=== PATIENT | female | born 1950 | race Caucasian/White ===

== ENCOUNTER 2019-11-23 12:57 | Inpatient (IN) | payer MEDICARE ==
[2019-11-23] MEDS ORDERED: ACETAMINOPHEN TAB 500 MG TAB PO STA (13:50)
--- NOTE | 2019-11-23 13:51 | ED ---
General Adult HPI - General Chief complaint: Upper Respiratory Infection Stated complaint: Covid + Time Seen by Provider: 11/23/19 13:07 Source: patient Mode of arrival: ambulatory Limitations: no limitations - History of Present Illness Initial comments: Dictation was produced using [employer] dictation software. please excuse any grammatical, word or spelling errors. This patient was cared for during a federal and state declared state of emergenc y secondary to Covid 19 Chief Complaint: 69-year-old female with no significant past medical history presents today with 1 week of cough and dyspnea. History of Present Illness: Is a 69-year-old female she has been feeling ill for the last 1-2 weeks. Patient had a chronic virus test that this resulted today and was found to be positive. Patient denies any chest pain. She states she is here in emergency department not because her tests are positive but because she feels like she's been sick and not getting anywhere. Patient denies any palpitations. She has been having low-grade fevers. She does complain of bilateral ear pain. Patient has a history of asthma or COPD patient resides any history of tobacco use. The ROS documented in this emergency department record has been reviewed and confirmed by me. Those systems with pertinent positive or negative responses have been documented in the HPI. All other systems are other negative and/or noncontributory. PHYSICAL EXAM: General Impression: Alert and oriented x3, not in acute distress, coughing HEENT: Normocephalic atraumatic, extra-ocular movements intact, pupils equal and reactive to light bilaterally, mucous membranes moist. Cardiovascular: Heart regular rate and rhythm Chest: Able to complete full sentences, no retractions, no tachypnea Abdomen: abdomen soft, non-tender, non-distended, no organomegaly Musculoskeletal: Pulses present and equal in all extremities, no peripheral edema Motor: no focal deficits noted Neurological: CN II-XII grossly intact, no focal motor or sensory deficits noted Skin: Intact with no visualized rashes Psych: Normal affect and mood ED course: 69 Year old female with known Covid positive test presents with fatigue, nonproductive cough. As upon arrival shows temperature 102.5, heart rate 135. Patient is not hypoxic. Laboratory evaluation obtained leukocytosis 14.2. There is lymphocyte up any. Coag panel is unremarkable. Metabolic panel is within acceptable limits. Lactic dehydrogenase is 80 weight, C-reactive protein is 89.8. Chest x-ray shows bilateral pneumonia. Patient heart rate is improved after administration of Tylenol. Considering patient's EKG changes and concern of pulmonary embolus. Patient started on twice a day Lovenox after discussion with machine assembler supervisor Dr. Starks. Dr. Starks recommended that patient does not need immediate CT PE study to look for PE. Patient is atrophic precautions. Case discussed Dr. Galeas who is willing to accept patient's care. EKG interpretation: Ventricular rate 119, sinus tachycardia, ND interval 120, Q RS 84, QTC 437. No ND prolongation, no QTC prolongation. There does appear to be an S1 every 3 T3 pattern concerning for pulmonary embolus. - Related Data Allergies Allergy/AdvReac Type Severity Reaction Status Date / Time No Known Allergies Allergy Verified 11/23/19 15:18 Review of Systems ROS Statement: Those systems with pertinent positive or pertinent negative responses have been documented in the HPI. ROS Other: All systems not noted in ROS Statement are negative. Past Medical History Past Medical History: No Reported History History of Any Multi-Drug Resistant Organisms: None Reported Past Surgical History: Section Past Psychological History: No Psychological Hx Reported Smoking Status: Never smoker Past Alcohol Use History: None Reported Past Drug Use History: None Reported General Exam Limitations: no limitations Course Vital Signs 11/23/19 11/23/19 11/23/19 13:00 15:11 15:37 Temperature 102.5 F H 101.6 F H Pulse Rate 135 H 99 77 Respiratory 23 20 16 Rate Blood Pressure 124/56 112/71 119/72 O2 Sat by Pulse 95 95 100 Oximetry Medical Decision Making - Lab Data Result diagrams: 11/23/19 14:01 11/23/19 14:01 Lab Results 11/23/19 11/23/19 11/23/19 Range/Units 14:01 14:01 14:01 WBC 14.2 H (3.8-10.6) k/uL RBC 4.84 (3.80-5.40) m/uL Hgb 14.5 (11.4-16.0) gm/dL Hct 45.1 (34.0-46.0) % MCV 93.3 (80.0-100.0) fL MCH 30.0 (25.0-35.0) pg MCHC 32.1 (31.0-37.0) g/dL RDW 12.8 (11.5-15.5) % Plt Count 202 (150-450) k/uL Neutrophils % 90 % Lymphocytes % 4 % Monocytes % 3 % Eosinophils % 1 % Basophils % 1 % Neutrophils # 12.7 H (1.3-7.7) k/uL Lymphocytes # 0.6 L (1.0-4.8) k/uL Monocytes # 0.5 (0-1.0) k/uL Eosinophils # 0.1 (0-0.7) k/uL Basophils # 0.1 (0-0.2) k/uL PT 10.2 (9.0-12.0) sec INR 1.0 (<1.2) APTT 23.2 (22.0-30.0) sec Sodium 139 (137-145) mmol/L Potassium 3.5 (3.5-5.1) mmol/L Chloride 107 (98-107) mmol/L Carbon Dioxide 25 (22-30) mmol/L Anion Gap 7 mmol/L BUN 20 H (7-17) mg/dL Creatinine 0.65 (0.52-1.04) mg/dL Est GFR (CKD-EPI)AfAm >90 (>60 ml/min/1.73 sqM) Est GFR (CKD-EPI)NonAf >90 (>60 ml/min/1.73 sqM) Glucose 130 H (74-99) mg/dL Plasma Lactic Acid Herrera (0.7-2.0) mmol/L Calcium 8.8 (8.4-10.2) mg/dL Magnesium 2.3 (1.6-2.3) mg/dL Total Bilirubin 0.8 (0.2-1.3) mg/dL AST 44 H (14-36) U/L ALT 46 H (4-34) U/L Alkaline Phosphatase 68 (38-126) U/L Lactate Dehydrogenase 808 H (313-618) U/L C-Reactive Protein 89.8 H (<10.0) mg/L Total Protein 6.5 (6.3-8.2) g/dL Albumin 3.6 (3.5-5.0) g/dL 11/23/19 Range/Units 14:01 WBC (3.8-10.6) k/uL RBC (3.80-5.40) m/uL Hgb (11.4-16.0) gm/dL Hct (34.0-46.0) % MCV (80.0-100.0) fL MCH (25.0-35.0) pg MCHC (31.0-37.0) g/dL RDW (11.5-15.5) % Plt Count (150-450) k/uL Neutrophils % % Lymphocytes % % Monocytes % % Eosinophils % % Basophils % % Neutrophils # (1.3-7.7) k/uL Lymphocytes # (1.0-4.8) k/uL Monocytes # (0-1.0) k/uL Eosinophils # (0-0.7) k/uL Basophils # (0-0.2) k/uL PT (9.0-12.0) sec INR (<1.2) APTT (22.0-30.0) sec Sodium (137-145) mmol/L Potassium (3.5-5.1) mmol/L Chloride (98-107) mmol/L Carbon Dioxide (22-30) mmol/L Anion Gap mmol/L BUN (7-17) mg/dL Creatinine (0.52-1.04) mg/dL Est GFR (CKD-EPI)AfAm (>60 ml/min/1.73 sqM) Est GFR (CKD-EPI)NonAf (>60 ml/min/1.73 sqM) Glucose (74-99) mg/dL Plasma Lactic Acid Herrera 1.0 (0.7-2.0) mmol/L Calcium (8.4-10.2) mg/dL Magnesium (1.6-2.3) mg/dL Total Bilirubin (0.2-1.3) mg/dL AST (14-36) U/L ALT (4-34) U/L Alkaline Phosphatase (38-126) U/L Lactate Dehydrogenase (313-618) U/L C-Reactive Protein (<10.0) mg/L Total Protein (6.3-8.2) g/dL Albumin (3.5-5.0) g/dL Disposition Clinical Impression: COVID-19 Disposition: ADMITTED IP TO THIS [facility] Condition: Fair Referrals: None,Stated [REFERRING] - 1-2 days Decision Time: 15:45
[2019-11-23] MEDS ORDERED: HEPARIN SODIUM,PORCINE 5,000 UNIT/ML 1 ML VIAL IV PRN (14:30)
[2019-11-23] MEDS ORDERED: HEPARIN SODIUM,PORCINE 10,000 UNIT/ML 1 ML VIAL IV ONE (14:30)
[2019-11-23] MEDS ORDERED: HEPARIN SOD,PORK IN 0.45% NACL 25,000 UNIT in 0.45% NACL 1 250ML.BAG IV SCH (14:30)
[2019-11-23 14:35] LABS: Basophils # (A) 0.1 k/uL (0-0.2); Basophils % (A) 1 %; Eosinophils # (A) 0.1 k/uL (0-0.7); Eosinophils % (A) 1 %; HCT 45.1 % (34.0-46.0); HGB 14.5 gm/dL (11.4-16.0); Lymphocytes # (A) 0.6 k/uL (1.0-4.8); Lymphocytes % (A) 4 %; MCHC 32.1 g/dL (31.0-37.0); MCV 93.3 fL (80.0-100.0); Mean Platelet Volume 7.6; Monocytes # (A) 0.5 k/uL (0-1.0); Monocytes % (A) 3 %; Neutrophils # (A) 12.7 k/uL (1.3-7.7); Neutrophils % (A) 90 %; Platelet Count 202 k/uL (150-450); RBC 4.84 m/uL (3.80-5.40); RDW 12.8 % (11.5-15.5); WBC 14.2 k/uL (3.8-10.6)
[2019-11-23 14:46] LABS: Partial Thromboplastin Time 23.2 sec (22.0-30.0); Prothrombin Time 10.2 sec (9.0-12.0)
[2019-11-23 14:57] LABS: ALT 46 U/L (4-34); AST 44 U/L (14-36); African American GFR (CKD) >90 (>60 ml/min/1.73 sqM); Albumin 3.6 g/dL (3.5-5.0); Alkaline Phosphatase 68 U/L (38-126); Anion Gap 7 mmol/L; Blood Urea Nitrogen 20 mg/dL (7-17); C Reactive Protein 89.8 mg/L (<10.0); Calcium 8.8 mg/dL (8.4-10.2); Carbon Dioxide 25 mmol/L (22-30); Chloride 107 mmol/L (98-107); Glucose 130 mg/dL (74-99); LDH 808 U/L (313-618); Magnesium 2.3 mg/dL (1.6-2.3); Non-African American GFR(CKD) >90 (>60 ml/min/1.73 sqM); Potassium 3.5 mmol/L (3.5-5.1); Sodium 139 mmol/L (137-145); Total Bilirubin 0.8 mg/dL (0.2-1.3); Total Protein 6.5 g/dL (6.3-8.2)
--- NOTE | 2019-11-23 14:59 | XR ---
EXAMINATION TYPE: XR chest 1V portable DATE OF EXAM: 11/23/2019 COMPARISON: NONE HISTORY: Pneumonia. Chest pain TECHNIQUE: Single view FINDINGS: There is some patchy airspace infiltrate left lower lobe and right upper lobe. Heart size i s normal. There are no hilar masses. Thoracic aorta is atheromatous. There are chest leads. IMPRESSION: Mild patchy bilateral pneumonia and subsegmental atelectasis.
[2019-11-23] MEDS ORDERED: ENOXAPARIN 80 MG/0.8 ML SYRINGE SQ STA (15:27)
[2019-11-23] MEDS ORDERED: NALOXONE 0.4 MG/ML 1 ML VIAL IV PRN (15:39)
[2019-11-23] MEDS ORDERED: ONDANSETRON 4 MG/2 ML VIAL IVP PRN (15:39)
[2019-11-23] MEDS: SODIUM CHLORIDE 0.9% 1,000 ML IV SCH (15:53)
--- NOTE | 2019-11-23 16:21 | US ---
EXAMINATION TYPE: US venous doppler duplex LE BI DATE OF EXAM: 11/23/2019 4:10 PM COMPARISON: NONE CLINICAL HISTORY: rule out dvt. Covid protocol per RN. SIDE PERFORMED: Bilateral TECHNIQUE: The lower extremity deep venous system is examined utilizing real time linear array sonog zena with graded compression, doppler sonography and color-flow sonography. VESSELS IMAGED: External Iliac Vein (EIV) Common Femoral Vein Deep Femoral Vein Greater Saphenous Vein * Femoral Vein Popliteal Vein Small Saphenous Vein * Proximal Calf Veins (* superficial vessels) Rouleau flow noted throughout. All vessels are compressible. Right Leg: Negative for DVT Left Leg: Negative for DVT IMPRESSION: No sign of deep vein thrombosis in both legs.
[2019-11-23] MEDS ORDERED: ALBUTEROL HFA INHALER INHALATION PRN (21:34)
[2019-11-23] MEDS: LATANOPROST 0.005% OPHTH DROPS 2.5 ML BTL BOTH EYES SCH (21:59)
[2019-11-23] MEDS ORDERED: AZITHROMYCIN 500 MG in SODIUM CHLORIDE 0.9% 250 ML IVPB ONE (22:00)
[2019-11-23] MEDS ORDERED: CEFDINIR 300 MG CAP PO SCH (22:00)
[2019-11-23] MEDS ORDERED: MECLIZINE 25 MG TAB PO PRN (22:00)
[2019-11-23] MEDS ORDERED: ONDANSETRON ODT 8 MG TAB.RAPDIS PO PRN (22:00)
--- NOTE | 2019-11-23 22:53 | P.HPIM ---
History of Present Illness H&P Date: 11/23/19 Chief Complaint: Short of breath cough History of presenting complaint: This is a pleasant 69-year-old patient of Dr. Edwina Mcgill. Patient on 12 of November started getting this very symptoms. That included some shortness of breath cough fever tired started having some loose stools. Decreased appetite tired rundown. Also some headache. Symptoms progressively started to get worse. Patient denies any respiratory prior history. No smoking. Patient is employed. Patient came down positive for COVID 19. Dr. Schneider was consulted from the ER. Patient started on Lovenox and steroids. Patient does feel tired and rundown. Review of systems: GEN.: Tired decreased appetite EYES: None HEENT: Denies headache NECK: None RESPIRATORY: As above CARDIOVASCULAR: None GASTROINTESTINAL: None GENITOURINARY: None MUSCULOSKELETAL: [Muscle aches LYMPHATICS: None HEMATOLOGICAL: None PSYCHIATRY: None NEUROLOGICAL: None Past medical history: Unremarkable Social history: Does not smoke or drink alcohol. Employed. Lives alone. Physical examination: VITAL SIGNS: 102.5, 135, 23, 124 /56, 93% on room air-upon presentation GENERAL: BMI 36.4, laying in bed, tired. EYES: Pupils equal. Conjunctiva normal. HEENT: External appearance of nose and ears normal, oral cavity grossly normal. NECK: JVD not raised; masses not palpable. HEART: First and second heart sounds are normal; no edema. LUNGS: Respiratory rate increased, decreased breath sound some wheezing inte rmittently crackles. ABDOMEN: Soft, nontender, liver spleen not palpable, no masses palpable. PSYCH: Alert and oriented x3; mood and affect anxiousl. NEUROLOGICAL: Cranial nerves grossly intact; no facial asymmetry, power and sensation grossly intact. LYMPHATICS: No lymph nodes palpable in the axilla and neck INVESTIGATIONS, reviewed in the clinical context: White count 14.2 neutrophils to 0.7 lymphocytes 0.6 d-dimer 0.8 date potassium 3.5 creatinine 0.65 CRP 89.8 LDH 808 EKG tracing personally reviewed by me-no sinus rhythm nonspecific T-wave changes Chest x-ray film personally reviewed by me-bilateral scattered infiltrates Assessment: -COVID 19 pneumonia symptoms present for 2 weeks. Patient is septic from the same as with a pulse ox of 93% on room air -Relative hypoxia from COVID 19 pneumonia. 4 oxygen supplementation -Dehydration from decreased oral intake with elevated BUN Plan: Consultation made to pulmonary, ID. Patient to be given steroids Lovenox. Oxygen supplementation. Ventolin inhaler. Care was discussed with the patient question also. Past Medical History Past Medical History: No Reported History History of Any Multi-Drug Resistant Organisms: None Reported Past Surgical History: Section, Tonsillectomy Past Psychological History: No Psychological Hx Reported Smoking Status: Never smoker Past Alcohol Use History: None Reported Past Drug Use History: None Reported - Past Family History Mother History Unknown: Yes Medications and Allergies Home Medications Medication Instructions Recorded Confirmed Type Albuterol Sulfate [Ventolin HFA] 2 puff INHALATION RT-Q4H PRN 11/23/19 11/23/19 History Alendronate Sodium [Fosamax] 70 mg PO Q7D 11/23/19 11/23/19 History Cefdinir 300 mg PO BID 11/23/19 11/23/19 History Ergocalciferol (Vitamin D2) 50,000 unit PO Q7D 11/23/19 11/23/19 History [Drisdol] Fluticasone Nasal [place] [Flonase 2 spr EA NOSTRIL DAILY 11/23/19 11/23/19 History Nasal [place]] Latanoprost/Pf [Latanoprost 0.005% 1 drop BOTH EYES HS 11/23/19 11/23/19 History Eye Drop] Meclizine HCl 25 mg PO TID PRN 11/23/19 11/23/19 History Omeprazole [PriLOSEC] 40 mg PO DAILY 11/23/19 11/23/19 History Ondansetron Odt [Zofran Odt] 8 mg PO Q8HR PRN 11/23/19 11/23/19 History predniSONE See Taper PO DAILY 11/23/19 11/23/19 History Allergies Allergy/AdvReac Type Severity Reaction Status Date / Time No Known Allergies Allergy Verified 11/23/19 15:18 Physical Exam Vitals: Vital Signs Temp Pulse Pulse Resp BP BP Pulse Ox 11/23/19 19:20 99.6 F 99 16 116/66 93 L 11/23/19 16:20 98.6 F 101 H 20 127/77 93 L 11/23/19 15:58 104 H 18 142/81 95 11/23/19 15:11 101.6 F H 99 20 112/71 95 11/23/19 13:00 102.5 F H 135 H 23 124/56 95 Intake and Output 11/23/19 11/23/19 11/23/19 06:59 14:59 22:59 Other: # Voids 1 Weight 81.647 kg 81.647 kg Results CBC & Chem 7: 11/23/19 14:01 11/23/19 14:01 Labs: Abnormal Lab Results - Last 24 Hours (Table) 11/23/19 11/23/19 11/23/19 Range/Units 14:01 14:01 14:01 WBC 14.2 H (3.8-10.6) k/uL Neutrophils # 12.7 H (1.3-7.7) k/uL Lymphocytes # 0.6 L (1.0-4.8) k/uL D-Dimer 0.88 H (<0.60) mg/L FEU BUN 20 H (7-17) mg/dL Glucose 130 H (74-99) mg/dL AST 44 H (14-36) U/L ALT 46 H (4-34) U/L Lactate Dehydrogenase 808 H (313-618) U/L C-Reactive Protein 89.8 H (<10.0) mg/L Thrombosis Risk Factor Assmnt - Choose All That Apply Each Factor Represents 1 point: Obesity (BMI >25) Each Risk Factor Represents 2 Points: Age 61-74 years Thrombosis Risk Factor Assessment Total Risk Factor Score: 3 Thrombosis Risk Factor Assessment Level: Moderate Risk
[2019-11-23 23:18] LABS: Ferritin 1153.1 ng/mL (10.0-291.0)
--- NOTE | 2019-11-23 23:49 | P.CONS ---
History of Present Illness - Reason for Consult Consult date: 11/23/19 covid 19 pneumonia Requesting physician: Giacomo Galeas - Chief Complaint Fever or shortness of breath or cough x 1 week - History of Present Illness Patient is 69 -year-old female presenting to the ER at [facility] with chief complaints of increasing shortness of breath and cough that has been going on for about a week patient started getting sick more than a week ago with her symptom has been fever and generalized weakness patient also have a cough which has been moderate in intensity and was initially dry in nature but not bringing spine amount of sputum and no hemoptysis no pleuritic chest pain however the patient did mention she did have a trouble taking a deep breath some nausea but no vomiting no abdominal pain and did have some diarrhea patient has been evaluated in the outpatient setting twice for her primary care physician and has been treated with the antibiotics and other medicines without any improvement patient not sure about the name, patient also have a covid 19 testing done in outpatient setting by her primary care physician and the patient mentioned the health department did call her when she was positive with the sym ptoms and worsening symptoms the patient presented to [facility] ER, on arrival to the ER patient did have a fever of 102F patient was not hypoxic with O2 sats of 95%, patient did have a white count of 14.2 with a left shift and lymphopenia patient did have mildly elevated d-dimer of 0.88, patient did have the elevated liver enzymes as well as LDH and CRP, pro-calcitonin normal, patient did have a chest x-ray with mild patchy bilateral pneumonia and subsegmental atelectasis patient has been admitted to the hospital infectious disease was consulted for further management Review of Systems Positive point has been mentioned in the HPI rest of the systems are negative Past Medical History Past Medical History: No Reported History History of Any Multi-Drug Resistant Organisms: None Reported Past Surgical History: Section, Tonsillectomy Past Psychological History: No Psychological Hx Reported Smoking Status: Never smoker Past Alcohol Use History: None Reported Past Drug Use History: None Reported - Past Family History Mother History Unknown: Yes Medications and Allergies Home Medications Medication Instructions Recorded Confirmed Type Albuterol Sulfate [Ventolin HFA] 2 puff INHALATION RT-Q4H PRN 11/23/19 11/23/19 History Alendronate Sodium [Fosamax] 70 mg PO Q7D 11/23/19 11/23/19 History Cefdinir 300 mg PO BID 11/23/19 11/23/19 History Ergocalciferol (Vitamin D2) 50,000 unit PO Q7D 11/23/19 11/23/19 History [Drisdol] Fluticasone Nasal [place] [Flonase 2 spr EA NOSTRIL DAILY 11/23/19 11/23/19 History Nasal [place]] Latanoprost/Pf [Latanoprost 0.005% 1 drop BOTH EYES HS 11/23/19 11/23/19 History Eye Drop] Meclizine HCl 25 mg PO TID PRN 11/23/19 11/23/19 History Omeprazole [PriLOSEC] 40 mg PO DAILY 11/23/19 11/23/19 History Ondansetron Odt [Zofran Odt] 8 mg PO Q8HR PRN 11/23/19 11/23/19 History predniSONE See Taper PO DAILY 11/23/19 11/23/19 History Allergies Allergy/AdvReac Type Severity Reaction Status Date / Time No Known Allergies Allergy Verified 11/23/19 15:18 Physical Exam Vitals: Vital Signs Temp Pulse Pulse Resp BP BP Pulse Ox 11/23/19 19:20 99.6 F 99 16 116/66 93 L 11/23/19 16:20 98.6 F 101 H 20 127/77 93 L 11/23/19 15:58 104 H 18 142/81 95 11/23/19 15:11 101.6 F H 99 20 112/71 95 11/23/19 13:00 102.5 F H 135 H 23 124/56 95 Intake and Output 11/23/19 11/23/19 11/23/19 06:59 14:59 22:59 Other: Weight 81.647 kg 81.647 kg GENERAL DESCRIPTION: An elderly female lying in bed, no distress. No tachypnea or accessory muscle of respiration use. HEENT: Shows Pallor , no scleral icterus. Oral mucous membrane is dry. No pharyngeal erythema or thrush NECK: Trachea central, no thyromegaly. LUNGS: Unlabored breathing. Coarse breath sounds at the bases bilaterally. No wheeze or crackle. HEART: S1, S2, regular rate and rhythm. No loud murmur ABDOMEN: Soft, no tenderness , guarding or rigidity, no organomegaly EXTREMITIES: No edema of feet. SKIN: No rash, no masses palpable. NEUROLOGICAL: The patient is awake, alert, oriented x3, mood and affect normal. Results CBC & Chem 7: 11/23/19 14:01 11/23/19 14:01 Labs: Abnormal Lab Results - Last 24 Hours (Table) 11/23/19 11/23/19 11/23/19 Range/Units 14:01 14:01 14:01 WBC 14.2 H (3.8-10.6) k/uL Neutrophils # 12.7 H (1.3-7.7) k/uL Lymphocytes # 0.6 L (1.0-4.8) k/uL D-Dimer 0.88 H (<0.60) mg/L FEU BUN 20 H (7-17) mg/dL Glucose 130 H (74-99) mg/dL AST 44 H (14-36) U/L ALT 46 H (4-34) U/L Lactate Dehydrogenase 808 H (313-618) U/L C-Reactive Protein 89.8 H (<10.0) mg/L Assessment and Plan Assessment: 1- patient presented to the hospital with fever and a cough that has been going on for more than a week this patient who did have outpatient testing for covid1 9 which came back positive in this patient who did have a fever lymphopenia elevated liver enzymes on the classical changes of Covid 19 infection with a chest x-ray did show bilateral infiltrate, however patient is currently not hypoxic and no need for supplemental oxygen with O2 sats of 95% (1) Pneumonia due to 2019 novel coronavirus Current Visit: Yes Status: Acute Code(s): U07.1 - COVID-19; J12.89 - OTHER VIRAL PNEUMONIA SNOMED Code(s): 301210959524866208 Plan: 1- detailed discussion with the pharmacy for the patient's currently not hypoxic with O2 sats of 95% patient did not qualify for Redemsivir 2- we will treat the patient with Zithromax 500 mg daily, along with dexamethasone 6 mg daily and Lovenox 40 subcu daily and zinc sulfate 3- droplet isolation We will follow on clinical condition and cultures to further adjust medication if needed Thank you for this consultation will follow this patient with you Time with Patient: Greater than 30
[2019-11-24] MEDS ORDERED: methylPREDNISolone SOD SUCCI 40 MG/ML 1 ML VIAL IV SCH
[2019-11-24] MEDS: ALBUTEROL HFA INHALER INHALATION SCH ×5 (05:52→21:36)
[2019-11-24] MEDS ORDERED: ENOXAPARIN 80 MG/0.8 ML SYRINGE SQ SCH (06:00)
[2019-11-24 06:39] LABS: Basophils % (A) 0 %; Eosinophils % (A) 0 %; HCT 39.7 % (34.0-46.0); HGB 13.2 gm/dL (11.4-16.0); Lymphocytes # (A) 1.4 k/uL (1.0-4.8); Lymphocytes % (A) 11 %; MCHC 33.1 g/dL (31.0-37.0); MCV 93.6 fL (80.0-100.0); Mean Platelet Volume 7.5; Monocytes # (A) 0.4 k/uL (0-1.0); Monocytes % (A) 3 %; Neutrophils # (A) 10.3 k/uL (1.3-7.7); Neutrophils % (A) 84 %; Platelet Count 213 k/uL (150-450); RBC 4.24 m/uL (3.80-5.40); RDW 12.6 % (11.5-15.5); WBC 12.3 k/uL (3.8-10.6)
[2019-11-24] MEDS: ENOXAPARIN 40 MG/0.4 ML SYRINGE SQ SCH (07:54)
[2019-11-24] MEDS: AZITHROMYCIN 250 MG TAB PO SCH (07:55)
[2019-11-24] MEDS: ZINC SULFATE 220 MG CAP PO SCH (07:55)
[2019-11-24] MEDS: PANTOPRAZOLE 40 MG TABLET PO SCH (07:55)
[2019-11-24] MEDS: dexAMETHasone 2 MG TAB PO SCH (07:55)
[2019-11-24] MEDS: FLUTICASONE 50MCG/SPRAY NASAL 16GM EA NOSTRIL SCH (07:55)
[2019-11-24] MEDS: ACETAMINOPHEN TAB 325 MG TAB PO PRN ×2 (07:58→15:16)
[2019-11-24] MEDS ORDERED: NON FORMULARY DRUG (Alendronate Sodium [Fosamax] 70 MG Tablet) PO SCH (09:00)
[2019-11-24] MEDS ORDERED: PANTOPRAZOLE 40 MG/10 ML VIAL IV SCH (09:00)
[2019-11-24 11:36] LABS: African American GFR (CKD) 101.7 (60.0-200.0); Anion Gap 10.8 mmol/L (4.00-12.00); BUN/Creat Ratio 25.71 Ratio (12.00-20.00); Calcium 8.4 mg/dL (8.7-10.3); Carbon Dioxide 24.2 mmol/L (21.6-31.8); Non-African American GFR(CKD) 87.8 (60.0-200.0); Potassium 3.5 mmol/L (3.5-5.5)
[2019-11-24] MEDS ORDERED: REMDESIVIR (EUA) 200 MG in SODIUM CHLORIDE 0.9% 250 ML IVPB ONE (15:00)
--- NOTE | 2019-11-24 15:12 | CONS ---
CONSULTATION This is a patient who was seen in the emergency room on November 22. Actually Dr. Aranda called me about this patient. This is a patient who came into the emergency room with complaints of shortness of breath, cough, and fever. She had not been feeling well for about a week or so. She actually states that her symptoms started right around November 15. She states that she had seen a number of providers and apparently was treated with a number of different medications but she just was not getting any better. She apparently was tested for COVID-19 and was found to be positive. I believe she states that that test took place earlier this week. Anyway, she came into the emergency room complaining of a fever, chills, cough, headache, shortness of breath and also the muscle aches and joint aches. Dr. Aranda was concerned about the possibility of thromboembolic disease such as PE because of abnormal EKG showing an S1 Q3 T3 pattern. I told him what should be done in that situation. Anyway, she was admitted. Her chest x-ray did show abnormalities. Her chest x-ray which was done on the was consistent with patchy bilateral pneumonitis. The patient was admitted with a diagnosis of COVID-19 pneumonia. Her T-max was 102.5 and she is currently requiring oxygen at 2-3 L by nasal cannula. Her saturations are right around 93-94% on oxygen therapy. In addition, she is mildly tachypneic. I did see the patient today. I thought the patient would benefit from Remdesivir. It is because her symptoms began within 10 days. We recently revised the Remdesivir criteria from symptoms within 7 days to symptoms within 10 days. I did speak to Emeterio in the pharmacy and he did agree to allow Ms. Gonzales to get Remdesivir which I think is the right thing. ALLERGIES: Denied. HOME MEDICATIONS: None. MEDICAL HISTORY: Unremarkable. SURGICAL HISTORY: Includes a . SOCIAL HISTORY: Negative for tobacco use. She denies alcohol or illicit drug use. FAMILY HISTORY: Noncontributory. REVIEW OF SYSTEMS: CONSTITUTIONAL: Fever, chills, muscle aches, joint aches. NEUROLOGIC: Headache. HEENT: Negative. CARDIOVASCULAR: Negative. PULMONARY: Shortness of breath, cough, chest congestion, phlegm production. GI: Negative. : Negative. RHEUMATOLOGIC: Negative. IMMUNOLOGIC: Negative. ENDOCRINOLOGIC: Negative. DERMATOLOGIC: Negative. PHYSICAL EXAMINATION: VITAL SIGNS: Current vital signs are reviewed. Temperature 98.5, heart rate 93, respiratory rate 22, blood pressure 118/78, mean 91, 2 L saturation is 93-94%. Appears in no acute distress. She does have some mild conversational dyspnea. She is mildly tachypneic. No audible wheezing. HEENT: Examination is grossly unremarkable. NECK: Supple. CARDIOVASCULAR: Examination reveals regular rhythm and rate. Heart rate 90 beats per minute. S1, S2 normal. LUNGS: Reveal some diffuse coarse rhonchi. Breath sounds are diminished. There are some crackles at both bases. ABDOMEN: Soft. Bowel sounds are not noted. EXTREMITIES are intact. There is no edema. SKIN: Without rash. NEUROLOGIC: Examination is brief but nonfocal. White count 12.3, hemoglobin 13.2, hematocrit 39.7, platelet count 313,000. She appears to be mildly lymphopenic. PT/INR PTT all normal. D-dimer was 0.88 and repeat was 0.6. Sodium, potassium, chloride and CO2 all normal. Anion gap normal. BUN and creatinine were 18 and 0.7. The patient's glucose was 91, calcium 8.4, ferritin 1153. AST and ALT were 44 and 46 respectively. LDH was initially 808, down to 308 and C- reactive protein was 89.8 down to 15. Procalcitonin level was 0.08. Microbiologic studies are pending or negative. Dopplers of the legs reveal no evidence of DVT. Chest x-ray shows patchy bilateral infiltrates. Current medications are reviewed. She is currently on Tylenol, albuterol inhaler, azithromycin, Decadron, Lovenox, Flonase nasal spray, eye drops, Antivert, Narcan, Zofran, Protonix, saline IV, and zinc. ASSESSMENT: 1. COVID-19 pneumonitis, characterized by fever, cough, shortness of breath, headache, muscle aches, joint aches and general sense of not well-being. 2. No significant past medical history. PLAN: The patient will be given Remdesivir. The patient should also have vitamin C and vitamin D. I will order those. In addition, the patient is currently already on Decadron and Zithromax. Finally, we will add some melatonin and Pepcid. Additional recommendations and suggestions are forthcoming. Prognosis is guarded. We will watch her very closely for any respiratory decline. MMODL / IJN: [id number] /
[2019-11-24] MEDS: SODIUM CHLORIDE 0.9% 1,000 ML IV SCH (15:49)
[2019-11-24] MEDS: MELATONIN 5 MG TABLET PO SCH (20:12)
[2019-11-24] MEDS: LATANOPROST 0.005% OPHTH DROPS 2.5 ML BTL BOTH EYES SCH (20:12)
--- NOTE | 2019-11-24 21:15 | P.PN ---
Progress Note - Text Progress Note Date: 11/24/19 Chief Complaint: Short of breath cough History of presenting complaint: This is a pleasant 69-year-old patient of Dr. Edwina Mcgill. Patient on 12 of November started getting this very symptoms. That included some shortness of breath cough fever tired started having some loose stools. Decreased appetite tired rundown. Also some headache. Symptoms progressively started to get worse. Patient denies any respiratory prior history. No smoking. Patient is employed. Patient came down positive for COVID 19. Dr. Schneider was consulted from the ER. Patient started on Lovenox and steroids. Patient does feel tired and rundown. Admitted with-COVID 19 pneumonia. Short of breath. Cough. Tired. Decrease appetite. shade better. Review of systems: Was done for constitutional, cardiovascular, GI, pulmonary. relevant finding as above Active Medications Acetaminophen (Acetaminophen Tab 325 Mg Tab) 650 mg PO Q6HR PRN PRN Reason: Mild Pain or Fever > 100.5 Last Admin: 11/24/19 15:16 Dose: 650 mg Documented by: Albuterol Sulfate (Albuterol Hfa Inhaler) 2 puff INHALATION RT-Q4H [facility] Last Admin: 11/24/19 16:33 Dose: Not Given Documented by: Ascorbic Acid (Ascorbic Acid 500 Mg Tab) 1,000 mg PO DAILY [facility] Azithromycin (Azithromycin 250 Mg Tab) 250 mg PO DAILY [facility] Last Admin: 11/24/19 07:55 Dose: 250 mg Documented by: Cholecalciferol (Cholecalciferol 400 Unit Tab) 400 unit PO DAILY [facility] Dexamethasone (Dexamethasone 2 Mg Tab) 6 mg PO DAILY [facility] Last Admin: 11/24/19 07:55 Dose: 6 mg Documented by: Enoxaparin Sodium (Enoxaparin 40 Mg/0.4 Ml Syringe) 40 mg SQ DAILY [facility] Last Admin: 11/24/19 07:54 Dose: 40 mg Documented by: Famotidine (Famotidine 20 Mg Tab) 20 mg PO DAILY [facility] Fluticasone Propionate (Fluticasone 50mcg/[place] Nasal 16gm) 2 spray EA NOSTRIL DAILY [facility] Last Admin: 11/24/19 07:55 Dose: 2 spray Documented by: Sodium Chloride (Saline 0.9%) 1,000 mls @ 20 mls/hr IV .Q24H [facility] Last Admin: 11/24/19 15:49 Dose: Not Given Documented by: Remdesivir 100 mg/ Sodium (Chloride) 250 mls @ 250 mls/hr IVPB DAILY@1500 [facility] Stop: 11/28/19 15:59 Latanoprost (Latanoprost 0.005% Ophth Drops 2.5 Ml Btl) 1 drops BOTH EYES HS [facility] Last Admin: 11/24/19 20:12 Dose: 1 drops Documented by: Meclizine HCl (Meclizine 25 Mg Tab) 25 mg PO TID PRN PRN Reason: DIZZINESS/NAUSEA Melatonin (Melatonin 5 Mg Tablet) 5 mg PO HS [facility] Last Admin: 11/24/19 20:12 Dose: 5 mg Documented by: Naloxone HCl (Naloxone 0.4 Mg/Ml 1 Ml Vial) 0.2 mg IV Q2M PRN PRN Reason: Opioid Reversal Ondansetron HCl (Ondansetron 4 Mg/2 Ml Vial) 4 mg IVP Q8HR PRN PRN Reason: Nausea And Vomiting Ondansetron HCl (Ondansetron Odt 8 Mg Tab.Rapdis) 8 mg PO Q8HR PRN PRN Reason: Nausea And Vomiting Pantoprazole Sodium (Pantoprazole 40 Mg Tablet) 40 mg PO DAILY [facility] Last Admin: 11/24/19 07:55 Dose: 40 mg Documented by: Zinc Sulfate (Zinc Sulfate 220 Mg Cap) 220 mg PO DAILY [facility] Last Admin: 11/24/19 07:55 Dose: 220 mg Documented by: Physical examination: VITAL SIGNS: Afebrile today, 83, 20, 110 x 70, 95% room air GENERAL: Sitting at the edge of the bed, tired, coughing Rest of the exam as per pulmonary and ID. EYES: Pupils equal. Conjunctiva normal. HEENT: External appearance of nose and ears normal, oral cavity grossly normal. NECK: JVD not raised; masses not palpable. HEART: First and second heart sounds are normal; no edema. LUNGS: Respiratory rate increased, decreased breath sound some wheezing intermittently crackles. ABDOMEN: Soft, nontender, liver spleen not palpable, no masses palpable. PSYCH: Alert and oriented x3; mood and affect anxious. INVESTIGATIONS, reviewed in the clinical context: White count 12.3 hemoglobin 13.2 potassium 3.5 creatinine 0.7 CRP 15 Previous testing White count 14.2 neutrophils to 0.7 lymphocytes 0.6 d-dimer 0.8 date potassium 3.5 creatinine 0.65 CRP 89.8 LDH 808 EKG tracing personally reviewed by me-no sinus rhythm nonspecific T-wave changes Chest x-ray film personally reviewed by me-bilateral scattered infiltrates Assessment: -COVID 19 pneumonia symptoms present for 2 weeks. Patient is septic from the same -slow to respond -Relative hypoxia from COVID 19 pneumonia. On presentation, now pulse oxes improved -Dehydration from decreased oral intake with elevated BUN Plan: Patient is on vitamin C, Zithromax, vitamin D3, dexamethasone, Lovenox, Pepcid, zinc. Dr. Starks did order Remdesivir. Discussed with patient.
[2019-11-24] MEDS ORDERED: ALBUTEROL HFA INHALER INHALATION PRN (21:36)
[2019-11-25] MEDS: ACETAMINOPHEN TAB 325 MG TAB PO PRN ×2 (05:30→20:29)
[2019-11-25 06:19] LABS: Basophils # (A) 0.1 k/uL (0-0.2); Basophils % (A) 1 %; Eosinophils % (A) 0 %; Lymphocytes # (A) 0.8 k/uL (1.0-4.8); Lymphocytes % (A) 9 %; MCH 29.8 pg (25.0-35.0); MCHC 31.7 g/dL (31.0-37.0); MCV 93.9 fL (80.0-100.0); Mean Platelet Volume 7.6; Monocytes # (A) 0.3 k/uL (0-1.0); Monocytes % (A) 4 %; Neutrophils # (A) 7.6 k/uL (1.3-7.7); Neutrophils % (A) 85 %; Platelet Count 245 k/uL (150-450); RBC 4.36 m/uL (3.80-5.40); RDW 12.4 % (11.5-15.5)
--- NOTE | 2019-11-25 06:51 | PN ---
PROGRESS NOTE DATE OF SERVICE: 11/24/2019 REASON FOR FOLLOWUP: Acute COVID-19 pneumonia. INTERVAL HISTORY: Patient overall fever pattern has improved. No temperature has been recorded today. The patient is breathing slightly comfortably. She continues to have a cough, congested in nature, moderate in intensity, not bringing up any sputum. No nausea, no vomiting. No abdominal pain or diarrhea. PHYSICAL EXAMINATION: Blood pressure 110/70 with a pulse of 83, temperature 97.4. She is 95% on room air. General description os an elderly female lying in bed in no distress. Respiratory system: Unlabored breathing. Some coarse breath sounds and wheezes bilaterally. Heart S1, S2. Regular rate and rhythm. ABDOMEN: Soft. No tenderness. LAB: Hemoglobin 13.1, white count 12.2, creatinine 0.7, CRP is down to 15. DIAGNOSTIC IMPRESSION: Patient with acute COVID-19 pneumonia. The patient has been started on Remdesivir this morning to continue along with Lovenox, dexamethasone, zinc sulfate. Continue with . Continues supportive care. MMODL / IJN: [id number] /
[2019-11-25] MEDS: ALBUTEROL HFA INHALER INHALATION SCH ×4 (08:14→20:34)
[2019-11-25] MEDS: ENOXAPARIN 40 MG/0.4 ML SYRINGE SQ SCH (08:37)
[2019-11-25] MEDS: PANTOPRAZOLE 40 MG TABLET PO SCH (08:39)
[2019-11-25] MEDS: FAMOTIDINE 20 MG TAB PO SCH (08:39)
[2019-11-25] MEDS: ASCORBIC ACID 500 MG TAB PO SCH (08:39)
[2019-11-25] MEDS: ZINC SULFATE 220 MG CAP PO SCH (08:40)
[2019-11-25] MEDS: dexAMETHasone 2 MG TAB PO SCH (08:40)
[2019-11-25] MEDS: AZITHROMYCIN 250 MG TAB PO SCH (08:40)
[2019-11-25] MEDS: CHOLECALCIFEROL 400 UNIT TAB PO SCH (08:40)
[2019-11-25] MEDS: FLUTICASONE 50MCG/SPRAY NASAL 16GM EA NOSTRIL SCH (08:41)
[2019-11-25 10:58] LABS: C Reactive Protein 11.8 mg/dL (0.0-0.8)
[2019-11-25] MEDS ORDERED: guaiFENesin-DM 100-10MG/5ML 10 ML CUP PO PRN (12:38)
--- NOTE | 2019-11-25 13:42 | P.PN ---
Subjective Progress Note Date: 11/25/19 Principal diagnosis: Covid 19 pneumonitis On November patient seen in follow-up on the general medical surgical floor, patient was admitted to the hospital on 11/23/2019 with complaints of shortness of breath, cough and fever, her symptoms started about a week ago. Patient was tested for COVID 19 and was found to be positive. In the emergency department she was also complaining of chills, cough, headache and some diffuse muscle aches. The chest x-ray showed a patchy bilateral pneumonitis. Patient was started on azithromycin, as she was started on Remdesivir, and today she is receiving her second dose. She is on prophylactic doses of Lovenox 40 mg daily, oral Pepcid, and zinc supplement. Today she still complaining of cough, but she has been afebrile in the last 24 hours, remains on 2 L of oxygen the pulse ox of 94%, CBC has been reviewed, lymphocytic, 0.8, the rest of the CBC is negative, d-dimer is 0.60, LDH is trending down down to 278, CRP is 11.8, procalcitonin is 0.08. Objective - Vital Signs Vital signs: Vital Signs Temp 97.9 F 11/25/19 07:00 Pulse 85 11/25/19 08:52 Resp 18 11/25/19 08:57 BP 131/79 11/25/19 07:00 Pulse Ox 94 L 11/25/19 08:52 Intake & Output 11/24/19 11/25/19 11/25/19 18:59 06:59 18:59 Intake Total 60 Balance 60 Intake: Intake, IV Titration 60 Amount Sodium Chloride 0.9% 1, 60 000 ml @ 20 mls/hr IV . Q24H [facility] Rx#:[id number] Other: Voiding Method Toilet # Voids 1 1 1 - Exam GENERAL EXAM: Alert, very pleasant, 69-year-old white female, 2 L of oxygen a pulse ox 94%, comfortable in no apparent distress. HEAD: Normocephalic/atraumatic. EYES: Normal reaction of pupils, equal size. Conjunctiva pink, sclera white. NOSE: Clear with pink turbinates. THROAT: No erythema or exudates. NECK: No masses, no JVD, no thyroid enlargement, no adenopathy. CHEST: No chest wall deformity. Symmetrical expansion. LUNGS: Equal air entry with no crackles, wheeze, rhonchi or dullness. CVS: Regular rate and rhythm, normal S1 and S2, no gallops, no murmurs, no rubs ABDOMEN: Soft, nontender. No hepatosplenomegaly, normal bowel sounds, no g uarding or rigidity. EXTREMITIES: No clubbing, no edema, no cyanosis, 2+ pulses and upper and lower extremities. MUSCULOSKELETAL: Muscle strength and tone normal. SPINE: No scoliosis or deformity SKIN: No rashes CENTRAL NERVOUS SYSTEM: Alert and oriented -3. No focal deficits, tone is normal in all 4 extremities. PSYCHIATRIC: Alert and oriented -3. Appropriate affect. Intact judgment and insight. - Labs CBC & Chem 7: 11/25/19 05:25 11/24/19 05:35 Labs: Abnormal Lab Results - Last 24 Hours (Table) 11/25/19 11/25/19 11/25/19 Range/Units 05:25 05:25 05:25 Lymphocytes # 0.8 L (1.0-4.8) k/uL D-Dimer 0.60 H (<0.60) mg/L FEU Lactate Dehydrogenase 278 H (120-246) U/L C-Reactive Protein 11.8 H (0.0-0.8) mg/dL Microbiology - Last 24 Hours (Table) 11/23/19 14:01 Blood Culture - Preliminary Blood No Growth after 24 hours Assessment and Plan Plan: Assessment: #1. Acute hypoxic respiratory failure related to acute quit 19 pneumonitis #2. Fever, cough, shortness of breath, headache, muscle aches joint aches, fatigue related to the above #3. Elevated inflammatory markers related to acute quit 19 pneumonitis #4. Lifetime nonsmoker Plan: Continue with Remdesivir, today patient will receive her second dose, continue prophylactic dose of Lovenox, azithromycin, zinc supplement, and Decadron. C ontinue supportive treatment. No worsening dyspnea, we will add some cough syrup. We'll continue to monitor the patient's oxygen saturation pattern, febrile pattern, we'll continue to follow inflammatory markers I performed a history & physical examination of the patient and discussed their management with my nurse practitioner, Sonam Dupree. I reviewed the nurse practitioner's note and agree with the documented findings and plan of care. Lung sounds are positive for diminished breath sounds. The findings and the impression was discussed with the patient. I attest to the documentation by the nurse practitioner. Time with Patient: Less than 30
[2019-11-25] MEDS: REMDESIVIR (EUA) 100 MG in SODIUM CHLORIDE 0.9% 250 ML IVPB SCH (14:30)
[2019-11-25] MEDS: SODIUM CHLORIDE 0.9% 1,000 ML IV SCH (14:33)
--- NOTE | 2019-11-25 18:35 | P.PN ---
Progress Note - Text Progress Note Date: 11/25/19 Chief Complaint: Short of breath cough History of presenting complaint: This is a pleasant 69-year-old patient of Dr. Edwina Mcgill. Patient on 12 of November started getting this very symptoms. That included some shortness of breath cough fever tired started having some loose stools. Decreased appetite tired rundown. Also some headache. Symptoms progressively started to get worse. Patient denies any respiratory prior history. No smoking. Patient is employed. Patient came down positive for COVID 19. Dr. Schneider was consulted from the ER. Admitted with-COVID 19 pneumonia. started on Lovenox and steroids.Remdisivir today-a bit lessShort of breath. Coughpresent. Tired. eating some. Review of systems: Was done for constitutional, cardiovascular, GI, pulmonary. relevant finding as above Active Medications Acetaminophen (Acetaminophen Tab 325 Mg Tab) 650 mg PO Q6HR PRN PRN Reason: Mild Pain or Fever > 100.5 Last Admin: 11/25/19 05:30 Dose: 650 mg Documented by: Albuterol Sulfate (Albuterol Hfa Inhaler) 2 puff INHALATION RT-QID PRN PRN Reason: Shortness Of Breath Or Wheezing Albuterol Sulfate (Albuterol Hfa Inhaler) 2 puff INHALATION RT-QID [facility] Last Admin: 11/25/19 16:02 Dose: 2 puff Documented by: Ascorbic Acid (Ascorbic Acid 500 Mg Tab) 1,000 mg PO DAILY [facility] Last Admin: 11/25/19 08:39 Dose: 1,000 mg Documented by: Azithromycin (Azithromycin 250 Mg Tab) 250 mg PO DAILY [facility] Last Admin: 11/25/19 08:40 Dose: 250 mg Documented by: Cholecalciferol (Cholecalciferol 400 Unit Tab) 400 unit PO DAILY [facility] Last Admin: 11/25/19 08:40 Dose: 400 unit Documented by: Dexamethasone (Dexamethasone 2 Mg Tab) 6 mg PO DAILY [facility] Last Admin: 11/25/19 08:40 Dose: 6 mg Documented by: Enoxaparin Sodium (Enoxaparin 40 Mg/0.4 Ml Syringe) 40 mg SQ DAILY [facility] Last Admin: 11/25/19 08:37 Dose: 40 mg Documented by: Famotidine (Famotidine 20 Mg Tab) 20 mg PO DAILY [facility] Last Admin: 11/25/19 08:39 Dose: 20 mg Documented by: Fluticasone Propionate (Fluticasone 50mcg/[place] Nasal 16gm) 2 spray EA NOSTRIL DAILY [facility] Last Admin: 11/25/19 08:41 Dose: 2 spray Documented by: Guaifenesin/Dextromethorphan (Guaifenesin-Dm 100-10mg/5ml 10 Ml Cup) 10 ml PO Q6H PRN PRN Reason: Cough Last Admin: 11/25/19 14:30 Dose: 10 ml Documented by: Sodium Chloride (Saline 0.9%) 1,000 mls @ 20 mls/hr IV .Q24H [facility] Last Admin: 11/25/19 14:33 Dose: 20 mls/hr Documented by: Remdesivir 100 mg/ Sodium (Chloride) 250 mls @ 250 mls/hr IVPB DAILY@1500 [facility] Stop: 11/28/19 15:59 Last Admin: 11/25/19 14:30 Dose: 250 mls/hr Documented by: Latanoprost (Latanoprost 0.005% Ophth Drops 2.5 Ml Btl) 1 drops BOTH EYES [facility] Last Admin: 11/24/19 20:12 Dose: 1 drops Documented by: Meclizine HCl (Meclizine 25 Mg Tab) 25 mg PO TID PRN PRN Reason: DIZZINESS/NAUSEA Melatonin (Melatonin 5 Mg Tablet) 5 mg PO [facility] Last Admin: 11/24/19 20:12 Dose: 5 mg Documented by: Naloxone HCl (Naloxone 0.4 Mg/Ml 1 Ml Vial) 0.2 mg IV Q2M PRN PRN Reason: Opioid Reversal Ondansetron HCl (Ondansetron 4 Mg/2 Ml Vial) 4 mg IVP Q8HR PRN PRN Reason: Nausea And Vomiting Ondansetron HCl (Ondansetron Odt 8 Mg Tab.Rapdis) 8 mg PO Q8HR PRN PRN Reason: Nausea And Vomiting Pantoprazole Sodium (Pantoprazole 40 Mg Tablet) 40 mg PO DAILY [facility] Last Admin: 11/25/19 08:39 Dose: 40 mg Documented by: Zinc Sulfate (Zinc Sulfate 220 Mg Cap) 220 mg PO DAILY [facility] Last Admin: 11/25/19 08:40 Dose: 220 mg Documented by: Physical examination: VITAL SIGNS: 97.6, 80, 16, 107/68, 94% on 2 L GENERAL: Sitting up, bouts of coughing Rest of the exam as per pulmonary and ID. EYES: Pupils equal. Conjunctiva normal. HEENT: External appearance of nose and ears normal, oral cavity grossly normal. NECK: JVD not raised; masses not palpable. HEART: First and second heart sounds are normal; no edema. LUNGS: Respiratory rate increased, decreased breath sound . ABDOMEN: Soft, nontender, liver spleen not palpable, no masses palpable. PSYCH: Alert and oriented x3; mood and affect anxious. INVESTIGATIONS, reviewed in the clinical context: white count 9 hemoglobin 13 d-dimer 0.6LDH 278 CRP 11.8 Previous testing White count 14.2 neutrophils to 0.7 lymphocytes 0.6 d-dimer 0.8 date potassium 3.5 creatinine 0.65 CRP 89.8 LDH 808 EKG tracing personally reviewed by me-no sinus rhythm nonspecific T-wave changes Chest x-ray film personally reviewed by me-bilateral scattered infiltrates Assessment: -COVID 19 pneumonia symptoms present for 2 weeks. Patient is septic from the same -slowly improving -Relative hypoxia from COVID 19 pneumonia. On presentation, now pulse ox improved -Dehydration from decreased oral intake with elevated BUN Plan: Patient is on vitamin C, Zithromax, vitamin D3, dexamethasone, Lovenox, Pepcid, zinc. IV Remdesivir. Discussed with patient.
[2019-11-25] MEDS: MELATONIN 5 MG TABLET PO SCH (20:26)
[2019-11-25] MEDS: LATANOPROST 0.005% OPHTH DROPS 2.5 ML BTL BOTH EYES SCH (20:27)
--- NOTE | 2019-11-26 01:23 | PN ---
PROGRESS NOTE DATE OF SERVICE: 11/25/2019 REASON FOR FOLLOWUP: Acute COVID-19 pneumonia. INTERVAL HISTORY: The patient is afebrile. The patient still has significant dry cough. The patient denies having any worsening of shortness of breath. No nausea, no vomiting. No abdominal pain or diarrhea. PHYSICAL EXAMINATION: Her blood pressure 112/55 with a pulse of 76, temperature 98.5. She is 94% on 2 L nasal cannula. General description is an elderly female up in the room in no distress. RESPIRATORY SYSTEM: Unlabored breathing, coarse breath sounds bilaterally. HEART: S1, S2. Regular rate and rhythm. ABDOMEN: Soft, no tenderness. LABS: Hemoglobin 13, white count 9.0. D-dimer is 0.60. LDH and CRP have improved. DIAGNOSTIC IMPRESSION AND PLAN: Patient with acute COVID-19 pneumonia. The patient's fever has resolved. Still has significant cough. Patient to continue with remdesivir, Lovenox, Zinc and dexamethasone. Will add Tessalon Perles for significant cough and monitor clinical course closely. MMODL / IJN: [id number] /
[2019-11-26] MEDS: ALBUTEROL HFA INHALER INHALATION SCH ×4 (08:01→19:57)
[2019-11-26] MEDS: ASCORBIC ACID 500 MG TAB PO SCH (08:23)
[2019-11-26] MEDS: FAMOTIDINE 20 MG TAB PO SCH (08:23)
[2019-11-26] MEDS: ENOXAPARIN 40 MG/0.4 ML SYRINGE SQ SCH (08:23)
[2019-11-26] MEDS: CHOLECALCIFEROL 400 UNIT TAB PO SCH (08:23)
[2019-11-26] MEDS: dexAMETHasone 2 MG TAB PO SCH (08:23)
[2019-11-26] MEDS: AZITHROMYCIN 250 MG TAB PO SCH (08:23)
[2019-11-26] MEDS: PANTOPRAZOLE 40 MG TABLET PO SCH (08:23)
[2019-11-26] MEDS: ZINC SULFATE 220 MG CAP PO SCH (08:23)
[2019-11-26] MEDS: FLUTICASONE 50MCG/SPRAY NASAL 16GM EA NOSTRIL SCH (08:24)
[2019-11-26] MEDS: BENZONATATE 100 MG CAP PO PRN (08:47)
--- NOTE | 2019-11-26 11:33 | P.PN ---
Subjective Progress Note Date: 11/26/19 Principal diagnosis: Covid 19 pneumonitis On November patient seen in follow-up on the general medical surgical floor, patient was admitted to the hospital on 11/23/2019 with complaints of shortness of breath, cough and fever, her symptoms started about a week ago. Patient was tested for COVID 19 and was found to be positive. In the emergency department she was also complaining of chills, cough, headache and some diffuse muscle aches. The chest x-ray showed a patchy bilateral pneumonitis. Patient was started on azithromycin, as she was started on Remdesivir, and today she is receiving her second dose. She is on prophylactic doses of Lovenox 40 mg daily, oral Pepcid, and zinc supplement. Today she still complaining of cough, but she has been afebrile in the last 24 hours, remains on 2 L of oxygen the pulse ox of 94%, CBC has been reviewed, lymphocytic, 0.8, the rest of the CBC is negative, d-dimer is 0.60, LDH is trending down down to 278, CRP is 11.8, procalcitonin is 0.08. On 11/26/2019 patient seen in follow-up on medical surgical floor, she remains in the contact precautions. Her main complaint is persistent cough, and diarrhea, she is currently on 2 L of oxygen with pulse ox of 93-94%, hemodynamically patient is stable, she has been afebrile, breathing seems to be comfortable otherwise. She continues on combination of azithromycin, oral Decadron, Pepcid, zinc supplement, Lovenox, and today will be her third dose of Remdesivir. No new labs today. Objective - Vital Signs Vital signs: Vital Signs Temp 98.3 F 11/26/19 07:00 Pulse 89 11/26/19 07:00 Resp 18 11/26/19 01:52 BP 137/86 11/26/19 07:00 Pulse Ox 93 L 11/26/19 07:00 Intake & Output 11/25/19 11/26/19 11/26/19 18:59 06:59 18:59 Intake Total 60 Balance 60 Intake: Intake, IV Titration 60 Amount Sodium Chloride 0.9% 1, 60 000 ml @ 20 mls/hr IV . Q24H [facility] Rx#:[id number] Other: Voiding Method Toilet # Voids 1 2 1 # Bowel Movements 1 - Exam GENERAL EXAM: Alert, very pleasant, 69-year-old white female, 2 L of oxygen a pulse ox 94%, comfortable in no apparent distress. HEAD: Normocephalic/atraumatic. EYES: Normal reaction of pupils, equal size. Conjunctiva pink, sclera white. NOSE: Clear with pink turbinates. THROAT: No erythema or exudates. NECK: No masses, no JVD, no thyroid enlargement, no adenopathy. CHEST: No chest wall deformity. Symmetrical expansion. LUNGS: Equal air entry with no crackles, wheeze, rhonchi or dullness. CVS: Regular rate and rhythm, normal S1 and S2, no gallops, no murmurs, no rubs ABDOMEN: Soft, nontender. No hepatosplenomegaly, normal bowel sounds, no guarding or rigidity. EXTREMITIES: No clubbing, no edema, no cyanosis, 2+ pulses and upper and lower extremities. MUSCULOSKELETAL: Muscle strength and tone normal. SPINE: No scoliosis or deformity SKIN: No rashes CENTRAL NERVOUS SYSTEM: Alert and oriented -3. No focal deficits, tone is normal in all 4 extremities. PSYCHIATRIC: Alert and oriented -3. Appropriate affect. Intact judgment and insight. - Labs CBC & Chem 7: 11/25/19 05:25 11/24/19 05:35 Labs: Microbiology - Last 24 Hours (Table) 11/23/19 14:01 Blood Culture - Preliminary Blood No Growth after 48 hours Assessment and Plan Plan: Assessment: #1. Acute hypoxic respiratory failure related to acute COVID 19 pneumonitis #2. Fever, cough, shortness of breath, headache, muscle aches joint aches, fatigue related to the above #3. Elevated inflammatory markers related to acute quit 19 pneumonitis #4. Lifetime nonsmoker Plan: Continue with current medical treatment, patient is on her third dose of Remdesivir, continue with antibiotics, Decadron, Lovenox. No acute events overnight, afebrile, no worsening dyspnea, still has some cough and diarrhea, continues on Robitussin-DM. Continue follow inflammatory markers, and follow-up chest x-ray in the morning I performed a history & physical examination of the patient and discussed their management with my nurse practitioner, Sonam Dupree. I reviewed the nurse practitioner's note and agree with the documented findings and plan of care. Lung sounds are positive for diminished breath sounds. The findings and the impression was discussed with the patient. I attest to the documentation by the nurse practitioner. Time with Patient: Less than 30
[2019-11-26] MEDS: SODIUM CHLORIDE 0.9% 1,000 ML IV SCH (12:39)
[2019-11-26] MEDS: REMDESIVIR (EUA) 100 MG in SODIUM CHLORIDE 0.9% 250 ML IVPB SCH (15:15)
--- NOTE | 2019-11-26 17:08 | P.PN ---
Progress Note - Text Progress Note Date: 11/26/19 Chief Complaint: Short of breath cough History of presenting complaint: This is a pleasant 69-year-old patient of Dr. Edwina Mcgill. Patient on 12 of November started getting this very symptoms. That included some shortness of breath cough fever tired started having some loose stools. Decreased appetite tired rundown. Also some headache. Symptoms progressively started to get worse. Patient denies any respiratory prior history. No smoking. Patient is employed. Patient came down positive for COVID 19. Dr. Schneider was consulted from the ER. Admitted with-COVID 19 pneumonia. started on Lovenox and steroids.Remdisivir today-short of breath, tired, cough present. Eating small amounts. Review of systems: Was done for constitutional, cardiovascular, GI, pulmonary. relevant finding as above Active Medications Acetaminophen (Acetaminophen Tab 325 Mg Tab) 650 mg PO Q6HR PRN PRN Reason: Mild Pain or Fever > 100.5 Last Admin: 11/25/19 20:29 Dose: 650 mg Documented by: Albuterol Sulfate (Albuterol Hfa Inhaler) 2 puff INHALATION RT-QID PRN PRN Reason: Shortness Of Breath Or Wheezing Albuterol Sulfate (Albuterol Hfa Inhaler) 2 puff INHALATION RT-QID [facility] Last Admin: 11/26/19 15:09 Dose: 2 puff Documented by: Ascorbic Acid (Ascorbic Acid 500 Mg Tab) 1,000 mg PO DAILY [facility] Last Admin: 11/26/19 08:23 Dose: 1,000 mg Documented by: Azithromycin (Azithromycin 250 Mg Tab) 250 mg PO DAILY [facility] Last Admin: 11/26/19 08:23 Dose: 250 mg Documented by: Benzonatate (Benzonatate 100 Mg Cap) 200 mg PO TID PRN PRN Reason: Cough Last Admin: 11/26/19 08:47 Dose: 200 mg Documented by: Cholecalciferol (Cholecalciferol 400 Unit Tab) 400 unit PO DAILY [facility] Last Admin: 11/26/19 08:23 Dose: 400 unit Documented by: Dexamethasone (Dexamethasone 2 Mg Tab) 6 mg PO DAILY [facility] Last Admin: 11/26/19 08:23 Dose: 6 mg Documented by: Enoxaparin Sodium (Enoxaparin 40 Mg/0.4 Ml Syringe) 40 mg SQ DAILY [facility] Last Admin: 11/26/19 08:23 Dose: 40 mg Documented by: Famotidine (Famotidine 20 Mg Tab) 20 mg PO DAILY [facility] Last Admin: 11/26/19 08:23 Dose: 20 mg Documented by: Fluticasone Propionate (Fluticasone 50mcg/[place] Nasal 16gm) 2 spray EA NOSTRIL DAILY [facility] Last Admin: 11/26/19 08:24 Dose: 2 spray Documented by: Guaifenesin/Dextromethorphan (Guaifenesin-Dm 100-10mg/5ml 10 Ml Cup) 10 ml PO Q6H PRN PRN Reason: Cough Last Admin: 11/25/19 14:30 Dose: 10 ml Documented by: Sodium Chloride (Saline 0.9%) 1,000 mls @ 20 mls/hr IV .Q24H [facility] Last Admin: 11/26/19 12:39 Dose: Not Given Documented by: Remdesivir 100 mg/ Sodium (Chloride) 250 mls @ 250 mls/hr IVPB DAILY@1500 [facility] Stop: 11/28/19 15:59 Last Admin: 11/26/19 15:15 Dose: 250 mls/hr Documented by: Latanoprost (Latanoprost 0.005% Ophth Drops 2.5 Ml Btl) 1 drops [facility] Last Admin: 11/25/19 20:27 Dose: 1 drops Documented by: Meclizine HCl (Meclizine 25 Mg Tab) 25 mg PO TID PRN PRN Reason: DIZZINESS/NAUSEA Melatonin (Melatonin 5 Mg Tablet) 5 mg PO HS [facility] Last Admin: 11/25/19 20:26 Dose: 5 mg Documented by: Naloxone HCl (Naloxone 0.4 Mg/Ml 1 Ml Vial) 0.2 mg IV Q2M PRN PRN Reason: Opioid Reversal Ondansetron HCl (Ondansetron 4 Mg/2 Ml Vial) 4 mg IVP Q8HR PRN PRN Reason: Nausea And Vomiting Ondansetron HCl (Ondansetron Odt 8 Mg Tab.Rapdis) 8 mg PO Q8HR PRN PRN Reason: Nausea And Vomiting Pantoprazole Sodium (Pantoprazole 40 Mg Tablet) 40 mg PO DAILY [facility] Last Admin: 11/26/19 08:23 Dose: 40 mg Documented by: Zinc Sulfate (Zinc Sulfate 220 Mg Cap) 220 mg PO DAILY [facility] Last Admin: 11/26/19 08:23 Dose: 220 mg Documented by: Physical examination: VITAL SIGNS: 98.4-80-20-129/74, 97% on 2 L GENERAL: Laying in bed, tired Rest of the exam as per pulmonary and ID. EYES: Pupils equal. Conjunctiva normal. HEENT: External appearance of nose and ears normal, oral cavity grossly normal. NECK: JVD not raised; masses not palpable. HEART: First and second heart sounds are normal; no edema. LUNGS: Respiratory rate increased, decreased breath sound . ABDOMEN: Soft, nontender, liver spleen not palpable, no masses palpable. PSYCH: Alert and oriented x3; mood and affect anxious. INVESTIGATIONS, reviewed in the clinical context: white count 9 hemoglobin 13 d-dimer 0.6LDH 278 CRP 11.8 Previous testing White count 14.2 neutrophils to 0.7 lymphocytes 0.6 d-dimer 0.8 date potassium 3.5 creatinine 0.65 CRP 89.8 LDH 808 EKG tracing personally reviewed by me-no sinus rhythm nonspecific T-wave changes Chest x-ray film personally reviewed by me-bilateral scattered infiltrates Assessment: -COVID 19 pneumonia symptoms present for 2 weeks. Patient is septic from the same -slowly improving -Relative hypoxia from COVID 19 pneumonia. On presentation, now pulse ox improved -Dehydration from decreased oral intake with elevated BUN Plan: Continue vitamin C, Zithromax, vitamin D3, dexamethasone, Lovenox, Pepcid, zinc. IV Remdesivir. Encouraged to sit up in a chair..
[2019-11-26] MEDS: ACETAMINOPHEN TAB 325 MG TAB PO PRN (17:36)
--- NOTE | 2019-11-26 18:03 | PN ---
PROGRESS NOTE DATE OF SERVICE: 11/26/2019 REASON FOR FOLLOWUP: Acute COVID-19 pneumonia. INTERVAL HISTORY: The patient is currently afebrile. The patient is feeling slightly better today. She is saturating well. However, she still has a dry, congested cough, not bringing up any sputum. No chest pain. No nausea, no vomiting. No abdominal pain or diarrhea. PHYSICAL EXAMINATION: Blood pressure 129/74 with a pulse of 80, temperature 98.4. She is 96% on 2 L nasal cannula. General description is an elderly female lying in bed in no distress. RESPIRATORY SYSTEM: Unlabored breathing with decreased intensity of breath sounds at the base. HEART: S1, S2. Regular rate and rhythm. ABDOMEN: Soft. No tenderness. LABS: Hemoglobin 13.0, white count 9.0. LDH is down to 278. CRP is down to 11.8. Blood culture has been negative. DIAGNOSTIC IMPRESSION AND PLAN: Patient with acute COVID-19 pneumonia. This patient seems to have some clinical improvement. Patient to continue with remdesivir, dexamethasone, Lovenox, zinc sulfate. We will monitor clinical course closely. MMODL / IJN: [id number] /
[2019-11-26] MEDS: MELATONIN 5 MG TABLET PO SCH (20:55)
[2019-11-26] MEDS: LATANOPROST 0.005% OPHTH DROPS 2.5 ML BTL BOTH EYES SCH (20:56)
--- NOTE | 2019-11-27 08:10 | XR ---
EXAMINATION TYPE: XR chest 1V DATE OF EXAM: 11/27/2019 CLINICAL HISTORY: Covid 19 viral infection TECHNIQUE: Portable upright view of the chest obtained COMPARISON: 11/23/2019 chest regressed FINDINGS: The cardiomediastinal silhouette is within normal limits for size. Pulmonary vasculature i s normal. There is subtle airspace opacity over the right upper lung and left lung base, which are mi ldly improved versus 11/23/2019 comparison. No pleural effusion. No pneumothorax. IMPRESSION: Persistent multifocal bilateral airspace opacities are mildly improved versus 11/23/2019.
[2019-11-27] MEDS: ENOXAPARIN 40 MG/0.4 ML SYRINGE SQ SCH (08:43)
[2019-11-27] MEDS: PANTOPRAZOLE 40 MG TABLET PO SCH (08:44)
[2019-11-27] MEDS: dexAMETHasone 2 MG TAB PO SCH (08:44)
[2019-11-27] MEDS: ASCORBIC ACID 500 MG TAB PO SCH (08:44)
[2019-11-27] MEDS: FAMOTIDINE 20 MG TAB PO SCH (08:44)
[2019-11-27] MEDS: ZINC SULFATE 220 MG CAP PO SCH (08:45)
[2019-11-27] MEDS: FLUTICASONE 50MCG/SPRAY NASAL 16GM EA NOSTRIL SCH (08:45)
[2019-11-27] MEDS: AZITHROMYCIN 250 MG TAB PO SCH (08:45)
[2019-11-27] MEDS: CHOLECALCIFEROL 400 UNIT TAB PO SCH (08:45)
[2019-11-27] MEDS: BENZONATATE 100 MG CAP PO PRN (08:49)
[2019-11-27] MEDS: ALBUTEROL HFA INHALER INHALATION SCH ×4 (09:06→19:49)
[2019-11-27 09:37] LABS: African American GFR (CKD) 113.7 (60.0-200.0); Albumin 3.3 g/dL (3.80-4.90); Albumin/Globulin Ratio 1.74 (1.60-3.17); Anion Gap 11.1 mmol/L (4.00-12.00); C Reactive Protein 2.4 mg/dL (0.0-0.8); Calcium 8.5 mg/dL (8.7-10.3); Carbon Dioxide 24.9 mmol/L (21.6-31.8); Globulin 1.9 g/dL (1.6-3.3); Non-African American GFR(CKD) 98.1 (60.0-200.0); Potassium 3.9 mmol/L (3.5-5.5); Total Bilirubin 0.4 mg/dL (0.3-1.2); Total Protein 5.2 g/dL (6.2-8.2)
[2019-11-27] MEDS ORDERED: PROMETHAZINE HCL 6.25 MG/5 ML CUP PO PRN (10:38)
--- NOTE | 2019-11-27 12:07 | P.PN ---
Subjective Progress Note Date: 11/27/19 Principal diagnosis: Covid 19 pneumonitis On November patient seen in follow-up on the general medical surgical floor, patient was admitted to the hospital on 11/23/2019 with complaints of shortness of breath, cough and fever, her symptoms started about a week ago. Patient was tested for COVID 19 and was found to be positive. In the emergency department she was also complaining of chills, cough, headache and some diffuse muscle aches. The chest x-ray showed a patchy bilateral pneumonitis. Patient was started on azithromycin, as she was started on Remdesivir, and today she is receiving her second dose. She is on prophylactic doses of Lovenox 40 mg daily, oral Pepcid, and zinc supplement. Today she still complaining of cough, but she has been afebrile in the last 24 hours, remains on 2 L of oxygen the pulse ox of 94%, CBC has been reviewed, lymphocytic, 0.8, the rest of the CBC is negative, d-dimer is 0.60, LDH is trending down down to 278, CRP is 11.8, procalcitonin is 0.08. On 11/26/2019 patient seen in follow-up on medical surgical floor, she remains in the contact precautions. Her main complaint is persistent cough, and diarrhea, she is currently on 2 L of oxygen with pulse ox of 93-94%, hemodynamically patient is stable, she has been afebrile, breathing seems to be comfortable otherwise. She continues on combination of azithromycin, oral Decadron, Pepcid, zinc supplement, Lovenox, and today will be her third dose of Remdesivir. No new labs today. On 11/27/2019 patient seen in follow-up on the [facility] medical surgical floor, she is awake and alert, she still is complaining of coughing spells, mild dyspnea, no acute distress. She is on 2 L of oxygen a pulse ox of 94-95%, hemodynamically stable, afebrile. He continues on azithromycin, oral Decadron, Pepcid, prophylactic doses of Lovenox, and today will receive her third dose of Remdesivir. She's had no fever or chills, no headaches, no nausea or vomiting, Objective - Vital Signs Vital signs: Vital Signs Temp 98 F 11/27/19 07:00 Pulse 69 11/27/19 07:00 Resp 18 11/27/19 07:00 BP 109/65 11/27/19 07:00 Pulse Ox 94 L 11/27/19 07:00 Intake & Output 11/26/19 11/27/19 11/27/19 18:59 06:59 18:59 Intake Total 480 Balance 480 Intake: Oral 480 Other: # Voids 1 2 # Bowel Movements 1 - Exam GENERAL EXAM: Alert, very pleasant, 69-year-old white female, 2 L of oxygen a pulse ox 94%, comfortable in no apparent distress. HEAD: Normocephalic/atraumatic. EYES: Normal reaction of pupils, equal size. Conjunctiva pink, sclera white. NOSE: Clear with pink turbinates. THROAT: No erythema or exudates. NECK: No masses, no JVD, no thyroid enlargement, no adenopathy. CHEST: No chest wall deformity. Symmetrical expansion. LUNGS: Equal air entry with no crackles, wheeze, rhonchi or dullness. CVS: Regular rate and rhythm, normal S1 and S2, no gallops, no murmurs, no rubs ABDOMEN: Soft, nontender. No hepatosplenomegaly, normal bowel sounds, no guarding or rigidity. EXTREMITIES: No clubbing, no edema, no cyanosis, 2+ pulses and upper and lower extremities. MUSCULOSKELETAL: Muscle strength and tone normal. SPINE: No scoliosis or deformity SKIN: No rashes CENTRAL NERVOUS SYSTEM: Alert and oriented -3. No focal deficits, tone is normal in all 4 extremities. PSYCHIATRIC: Alert and oriented -3. Appropriate affect. Intact judgment and insight. - Labs CBC & Chem 7: 11/25/19 05:25 11/27/19 05:48 Labs: Abnormal Lab Results - Last 24 Hours (Table) 11/27/19 Range/Units 05:48 Creatinine 0.5 L (0.6-1.5) mg/dL BUN/Creatinine Ratio 40.00 H (12.00-20.00) Ratio Glucose 128 H (70-110) mg/dL Calcium 8.5 L (8.7-10.3) mg/dL ALT 46 H (8-44) U/L Lactate Dehydrogenase 255 H (120-246) U/L C-Reactive Protein 2.4 H (0.0-0.8) mg/dL Total Protein 5.2 L (6.2-8.2) g/dL Albumin 3.30 L (3.80-4.90) g/dL Microbiology - Last 24 Hours (Table) 11/23/19 14:01 Blood Culture - Preliminary Blood No Growth after 72 hours Assessment and Plan Plan: Assessment: #1. Acute hypoxic respiratory failure related to acute COVID 19 pneumonitis #2. Fever, cough, shortness of breath, headache, muscle aches joint aches, fatigue related to the above #3. Elevated inflammatory markers related to acute quit 19 pneumonitis #4. Lifetime nonsmoker Plan: Today's chest x-ray has been reviewed, showing persistent multifocal bilateral airspace opacities mildly improved from a a few days ago, patient remains afebrile, still complaining of a cough, we will add Phenergan syrup every 6 hours [id number], continue with Remdesivir, oral Decadron, azithromycin, prophylactic dose of Lovenox. We'll continue to follow and follow inflammatory markers. I performed a history & physical examination of the patient and discussed their management with my nurse practitioner, Sonam Dupree. I reviewed the nurse practitioner's note and agree with the documented findings and plan of care. Lung sounds are positive for diminished breath sounds. The findings and the impression was discussed with the patient. I attest to the documentation by the nurse practitioner. Time with Patient: Less than 30
[2019-11-27] MEDS: PROMETHAZINE HCL 6.25 MG/5 ML CUP PO SCH ×3 (12:31→22:33)
[2019-11-27] MEDS: REMDESIVIR (EUA) 100 MG in SODIUM CHLORIDE 0.9% 250 ML IVPB SCH (16:23)
[2019-11-27] MEDS: SODIUM CHLORIDE 0.9% 1,000 ML IV SCH (16:24)
--- NOTE | 2019-11-27 18:04 | P.PN ---
Progress Note - Text Progress Note Date: 11/27/19 Chief Complaint: Short of breath cough History of presenting complaint: This is a pleasant 69-year-old patient of Dr. Ramiro Mcgill. Patient on 12 of November started getting this very symptoms. That included some shortness of breath cough fever tired started having some loose stools. Decreased appetite tired rundown. Also some headache. Symptoms progressively started to get worse. Patient denies any respiratory prior history. No smoking. Patient is employed. Patient came down positive for COVID 19. Dr. Schneider was consulted from the ER. Admitted with-COVID 19 pneumonia. started on Lovenox and steroids.Remdisivir today-eating okay. Having a bowel movement. Still coughing. Less short of breath. No fever. Tired Review of systems: Was done for constitutional, cardiovascular, GI, pulmonary. relevant finding as above Active Medications Acetaminophen (Acetaminophen Tab 325 Mg Tab) 650 mg PO Q6HR PRN PRN Reason: Mild Pain or Fever > 100.5 Last Admin: 11/25/19 20:29 Dose: 650 mg Documented by: Albuterol Sulfate (Albuterol Hfa Inhaler) 2 puff INHALATION RT-QID PRN PRN Reason: Shortness Of Breath Or Wheezing Albuterol Sulfate (Albuterol Hfa Inhaler) 2 puff INHALATION RT-QID [facility] Last Admin: 11/26/19 15:09 Dose: 2 puff Documented by: Ascorbic Acid (Ascorbic Acid 500 Mg Tab) 1,000 mg PO DAILY [facility] Last Admin: 11/26/19 08:23 Dose: 1,000 mg Documented by: Azithromycin (Azithromycin 250 Mg Tab) 250 mg PO DAILY [facility] Last Admin: 11/26/19 08:23 Dose: 250 mg Documented by: Benzonatate (Benzonatate 100 Mg Cap) 200 mg PO TID PRN PRN Reason: Cough Last Admin: 11/26/19 08:47 Dose: 200 mg Documented by: Cholecalciferol (Cholecalciferol 400 Unit Tab) 400 unit PO DAILY [facility] Last Admin: 11/26/19 08:23 Dose: 400 unit Documented by: Dexamethasone (Dexamethasone 2 Mg Tab) 6 mg PO DAILY [facility] Last Admin: 11/26/19 08:23 Dose: 6 mg Documented by: Enoxaparin Sodium (Enoxaparin 40 Mg/0.4 Ml Syringe) 40 mg SQ DAILY [facility] Last Admin: 11/26/19 08:23 Dose: 40 mg Documented by: Famotidine (Famotidine 20 Mg Tab) 20 mg PO DAILY [facility] Last Admin: 11/26/19 08:23 Dose: 20 mg Documented by: Fluticasone Propionate (Fluticasone 50mcg/[place] Nasal 16gm) 2 spray EA NOSTRIL DAILY [facility] Last Admin: 11/26/19 08:24 Dose: 2 spray Documented by: Guaifenesin/Dextromethorphan (Guaifenesin-Dm 100-10mg/5ml 10 Ml Cup) 10 ml PO Q6H PRN PRN Reason: Cough Last Admin: 11/25/19 14:30 Dose: 10 ml Documented by: Sodium Chloride (Saline 0.9%) 1,000 mls @ 20 mls/hr IV .Q24H [facility] Last Admin: 11/26/19 12:39 Dose: Not Given Documented by: Remdesivir 100 mg/ Sodium (Chloride) 250 mls @ 250 mls/hr IVPB DAILY@1500 [facility] Stop: 11/28/19 15:59 Last Admin: 11/26/19 15:15 Dose: 250 mls/hr Documented by: Latanoprost (Latanoprost 0.005% Ophth Drops 2.5 Ml Btl) 1 drops [facility] Last Admin: 11/25/19 20:27 Dose: 1 drops Documented by: Meclizine HCl (Meclizine 25 Mg Tab) 25 mg PO TID PRN PRN Reason: DIZZINESS/NAUSEA Melatonin (Melatonin 5 Mg Tablet) 5 mg PO [facility] Last Admin: 11/25/19 20:26 Dose: 5 mg Documented by: Naloxone HCl (Naloxone 0.4 Mg/Ml 1 Ml Vial) 0.2 mg IV Q2M PRN PRN Reason: Opioid Reversal Ondansetron HCl (Ondansetron 4 Mg/2 Ml Vial) 4 mg IVP Q8HR PRN PRN Reason: Nausea And Vomiting Ondansetron HCl (Ondansetron Odt 8 Mg Tab.Rapdis) 8 mg PO Q8HR PRN PRN Reason: Nausea And Vomiting Pantoprazole Sodium (Pantoprazole 40 Mg Tablet) 40 mg PO DAILY [facility] Last Admin: 11/26/19 08:23 Dose: 40 mg Documented by: Zinc Sulfate (Zinc Sulfate 220 Mg Cap) 220 mg PO DAILY [facility] Last Admin: 11/26/19 08:23 Dose: 220 mg Documented by: Physical examination: VITAL SIGNS: 98.2, 68, 18, 115/75, 97% on 2 L GENERAL: Laying in bed, tired Rest of the exam as per pulmonary and ID. EYES: Pupils equal. Conjunctiva normal. HEENT: External appearance of nose and ears normal, oral cavity grossly normal. NECK: JVD not raised; masses not palpable. HEART: First and second heart sounds are normal; no edema. LUNGS: Respiratory rate increased, decreased breath sound . ABDOMEN: Soft, nontender, liver spleen not palpable, no masses palpable. PSYCH: Alert and oriented x3; mood and affect anxious. INVESTIGATIONS, reviewed in the clinical context: Potassium 3.9 creatinine 0.5 LDH 255 CRP 2.4 Previous testing White count 14.2 neutrophils to 0.7 lymphocytes 0.6 d-dimer 0.8 date potassium 3.5 creatinine 0.65 CRP 89.8 LDH 808 EKG tracing personally reviewed by me-no sinus rhythm nonspecific T-wave changes Chest x-ray film personally reviewed by me-bilateral scattered infiltrates Assessment: -COVID 19 pneumonia symptoms present for 2 weeks. Patient is septic from the same -continues to improve slowly. CRP coming down. Pro-calcitonin was normal 4 days ago. -Relative hypoxia from COVID 19 pneumonia. On presentation, pulse ox normal -Dehydration from decreased oral intake with elevated BUN -Hypoalbuminemia, acute phase reactant -Obesity BMI 36.4 Plan: Continue vitamin C, Zithromax, vitamin D3, dexamethasone, Lovenox, Pepcid, zinc. IV Remdesivir. Continue current treatment plan.
[2019-11-27] MEDS: MELATONIN 5 MG TABLET PO SCH (20:38)
[2019-11-27] MEDS: LATANOPROST 0.005% OPHTH DROPS 2.5 ML BTL BOTH EYES SCH (20:39)
--- NOTE | 2019-11-27 23:23 | PN ---
PROGRESS NOTE DATE OF SERVICE: 11/27/2019 REASON FOR FOLLOWUP: Acute COVID-19 pneumonia. INTERVAL HISTORY: The patient is currently afebrile. The patient is breathing comfortably. She still has a cough, though decreased in intensity, dry in nature. No nausea, no vomiting. No abdominal pain or diarrhea. PHYSICAL EXAMINATION: Blood pressure 117/71 with a pulse of 63, temperature 97.9. She is 98% on 2 L nasal cannula. General description is an elderly female up in the bed in no distress. RESPIRATORY SYSTEM: Unlabored breathing. Some coarse breath sounds . No wheeze. HEART: S1, S2. Regular rate and rhythm. ABDOMEN: Soft. No tenderness. LABS: BUN of 20, creatinine 0.50. Inflammatory markers slightly decreased. DIAGNOSTIC IMPRESSION AND PLAN: Patient with acute COVID-19 pneumonia, for which the patient is currently covered with remdesivir, dexamethasone; to continue. Chest x-ray did show minimal improvement. Monitor clinical course closely. Continue supportive care. MMODL / IJN: [id number] /
[2019-11-28] MEDS: PROMETHAZINE HCL 6.25 MG/5 ML CUP PO SCH ×4 (05:29→23:16)
[2019-11-28] MEDS: CHOLECALCIFEROL 400 UNIT TAB PO SCH (08:50)
[2019-11-28] MEDS: FAMOTIDINE 20 MG TAB PO SCH (08:50)
[2019-11-28] MEDS: PANTOPRAZOLE 40 MG TABLET PO SCH (08:50)
[2019-11-28] MEDS: AZITHROMYCIN 250 MG TAB PO SCH (08:50)
[2019-11-28] MEDS: ENOXAPARIN 40 MG/0.4 ML SYRINGE SQ SCH (08:50)
[2019-11-28] MEDS: ZINC SULFATE 220 MG CAP PO SCH (08:51)
[2019-11-28] MEDS: FLUTICASONE 50MCG/SPRAY NASAL 16GM EA NOSTRIL SCH (08:51)
[2019-11-28] MEDS: ASCORBIC ACID 500 MG TAB PO SCH (08:51)
[2019-11-28] MEDS: dexAMETHasone 2 MG TAB PO SCH (08:51)
[2019-11-28] MEDS: ALBUTEROL HFA INHALER INHALATION SCH ×4 (09:13→19:50)
[2019-11-28 09:55] LABS: Albumin 3.3 g/dL (3.80-4.90); Albumin/Globulin Ratio 1.83 (1.60-3.17); Anion Gap 8.4 mmol/L (4.00-12.00); BUN/Creat Ratio 36.67 Ratio (12.00-20.00); C Reactive Protein 1.3 mg/dL (0.0-0.8); Calcium 8.3 mg/dL (8.7-10.3); Carbon Dioxide 24.6 mmol/L (21.6-31.8); Globulin 1.8 g/dL (1.6-3.3); Non-African American GFR(CKD) 92.4 (60.0-200.0); Potassium 3.9 mmol/L (3.5-5.5); Total Bilirubin 0.4 mg/dL (0.3-1.2); Total Protein 5.1 g/dL (6.2-8.2)
[2019-11-28] MEDS: methylPREDNISolone SOD SUCCI 125 MG/2 ML VIAL IV SCH ×3 (12:17→23:15)
--- NOTE | 2019-11-28 13:23 | P.PN ---
Subjective Progress Note Date: 11/28/19 Principal diagnosis: Covid 19 pneumonitis On November patient seen in follow-up on the general medical surgical floor, patient was admitted to the hospital on 11/23/2019 with complaints of shortness of breath, cough and fever, her symptoms started about a week ago. Patient was tested for COVID 19 and was found to be positive. In the emergency department she was also complaining of chills, cough, headache and some diffuse muscle aches. The chest x-ray showed a patchy bilateral pneumonitis. Patient was started on azithromycin, as she was started on Remdesivir, and today she is receiving her second dose. She is on prophylactic doses of Lovenox 40 mg daily, oral Pepcid, and zinc supplement. Today she still complaining of cough, but she has been afebrile in the last 24 hours, remains on 2 L of oxygen the pulse ox of 94%, CBC has been reviewed, lymphocytic, 0.8, the rest of the CBC is negative, d-dimer is 0.60, LDH is trending down down to 278, CRP is 11.8, procalcitonin is 0.08. On 11/26/2019 patient seen in follow-up on medical surgical floor, she remains in the contact precautions. Her main complaint is persistent cough, and diarrhea, she is currently on 2 L of oxygen with pulse ox of 93-94%, hemodynamically patient is stable, she has been afebrile, breathing seems to be comfortable otherwise. She continues on combination of azithromycin, oral Decadron, Pepcid, zinc supplement, Lovenox, and today will be her third dose of Remdesivir. No new labs today. On 11/27/2019 patient seen in follow-up on the [facility] medical surgical floor, she is awake and alert, she still is complaining of coughing spells, mild dyspnea, no acute distress. She is on 2 L of oxygen a pulse ox of 94-95%, hemodynamically stable, afebrile. He continues on azithromycin, oral Decadron, Pepcid, prophylactic doses of Lovenox, and today will receive her third dose of Remdesivir. She's had no fever or chills, no headaches, no nausea or vomiting, On 11/28/2019 patient is seen in follow-up on medical surgical floor, her cough is still quite persistent, but no worsening dyspnea, her vital segment stable overnight, she's had no fever or chills, she is on 2 L of oxygen per pulse ox 96%, hemodynamically stable, no chest pain, she remains on azithromycin, oral Decadron, Pepcid, prophylactic doses of Lovenox, and she will receive her fourth dose of Remdesivir today, she has had no fever, no chills no headaches no nausea or vomiting. Objective - Vital Signs Vital signs: Vital Signs Temp 98.2 F 11/28/19 07:50 Pulse 70 11/28/19 07:50 Resp 16 11/28/19 07:50 BP 130/74 11/28/19 07:50 Pulse Ox 96 11/28/19 07:50 Intake & Output 11/27/19 11/28/19 11/28/19 18:59 06:59 18:59 Intake Total 532 220 Balance 532 220 Intake: Intake, IV Titration 220 Amount Sodium Chloride 0.9% 1, 220 000 ml @ 20 mls/hr IV . Q24H [facility] Rx#:[id number] Oral 532 Other: Voiding Method Toilet # Voids 1 - Exam GENERAL EXAM: Alert, very pleasant, 69-year-old white female, 2 L of oxygen a pulse ox 96%, comfortable in no apparent distress. HEAD: Normocephalic/atraumatic. EYES: Normal reaction of pupils, equal size. Conjunctiva pink, sclera white. NOSE: Clear with pink turbinates. THROAT: No erythema or exudates. NECK: No masses, no JVD, no thyroid enlargement, no adenopathy. CHEST: No chest wall deformity. Symmetrical expansion. LUNGS: Equal air entry with no crackles, wheeze, rhonchi or dullness. CVS: Regular rate and rhythm, normal S1 and S2, no gallops, no murmurs, no rubs ABDOMEN: Soft, nontender. No hepatosplenomegaly, normal bowel sounds, no guarding or rigidity. EXTREMITIES: No clubbing, no edema, no cyanosis, 2+ pulses and upper and lower extremities. MUSCULOSKELETAL: Muscle strength and tone normal. SPINE: No scoliosis or deformity SKIN: No rashes CENTRAL NERVOUS SYSTEM: Alert and oriented -3. No focal deficits, tone is normal in all 4 extremities. PSYCHIATRIC: Alert and oriented -3. Appropriate affect. Intact judgment and insight. - Labs CBC & Chem 7: 11/25/19 05:25 11/28/19 06:15 Labs: Abnormal Lab Results - Last 24 Hours (Table) 11/28/19 Range/Units 06:15 BUN/Creatinine Ratio 36.67 H (12.00-20.00) Ratio Glucose 121 H (70-110) mg/dL Calcium 8.3 L (8.7-10.3) mg/dL AST 38 H (13-35) U/L ALT 59 H (8-44) U/L Lactate Dehydrogenase 260 H (120-246) U/L C-Reactive Protein 1.3 H (0.0-0.8) mg/dL Total Protein 5.1 L (6.2-8.2) g/dL Albumin 3.30 L (3.80-4.90) g/dL Microbiology - Last 24 Hours (Table) 11/23/19 14:01 Blood Culture - Preliminary Blood No Growth after 96 hours Assessment and Plan Plan: Assessment: #1. Acute hypoxic respiratory failure related to acute COVID 19 pneumonitis #2. Fever, cough, shortness of breath, headache, muscle aches joint aches, fatigue related to the above #3. Elevated inflammatory markers related to acute quit 19 pneumonitis #4. Lifetime nonsmoker Plan: Patient complaining of persistent cough, we will add 3 doses of IV Solu-Medrol 60 mg every 6 hours, continue with oral Decadron, continue with azithromycin, Lovenox, Pepcid, limiter markers are trending down, she's had no fever or chills. She will receive her 4th dose of Remdesivir. We'll continue to follow inflammatory markers. Oxygenation stable on 2 L of oxygen. I performed a history & physical examination of the patient and discussed their management with my nurse practitioner, Sonam Dupree. I reviewed the nurse practitioner's note and agree with the documented findings and plan of care. Lung sounds are positive for diminished breath sounds. The findings and the impression was discussed with the patient. I attest to the documentation by the nurse practitioner. Time with Patient: Less than 30
[2019-11-28] MEDS: REMDESIVIR (EUA) 100 MG in SODIUM CHLORIDE 0.9% 250 ML IVPB SCH (15:18)
[2019-11-28] MEDS: SODIUM CHLORIDE 0.9% 1,000 ML IV SCH (15:22)
[2019-11-28] MEDS: MELATONIN 5 MG TABLET PO SCH (21:40)
[2019-11-28] MEDS: LATANOPROST 0.005% OPHTH DROPS 2.5 ML BTL BOTH EYES SCH (21:40)
--- NOTE | 2019-11-28 21:44 | P.PN ---
Progress Note - Text Progress Note Date: 11/28/19 Chief Complaint: Short of breath cough History of presenting complaint: This is a pleasant 69-year-old patient of Dr. Ramiro Mcgill. Patient on 12 of November started getting this very symptoms. That included some shortness of breath cough fever tired started having some loose stools. Decreased appetite tired rundown. Also some headache. Symptoms progressively started to get worse. Patient denies any respiratory prior history. No smoking. Patient is employed. Patient came down positive for COVID 19. Dr. Starks was consulted from the ER. Admitted with-COVID 19 pneumonia. started on Lovenox and steroids. Remdisivir today-feeling better. Cough present. Breathing improved. Decreased diarrhea. Up to the bathroom.oral intake good. Review of systems: Was done for constitutional, cardiovascular, GI, pulmonary. relevant finding as above Active Medications Acetaminophen (Acetaminophen Tab 325 Mg Tab) 650 mg PO Q6HR PRN PRN Reason: Mild Pain or Fever > 100.5 Last Admin: 11/26/19 17:36 Dose: 650 mg Documented by: Albuterol Sulfate (Albuterol Hfa Inhaler) 2 puff INHALATION RT-QID PRN PRN Reason: Shortness Of Breath Or Wheezing Albuterol Sulfate (Albuterol Hfa Inhaler) 2 puff INHALATION RT-QID [facility] Last Admin: 11/28/19 19:50 Dose: Not Given Documented by: Ascorbic Acid (Ascorbic Acid 500 Mg Tab) 1,000 mg PO DAILY [facility] Last Admin: 11/28/19 08:51 Dose: 1,000 mg Documented by: Azithromycin (Azithromycin 250 Mg Tab) 250 mg PO DAILY [facility] Last Admin: 11/28/19 08:50 Dose: 250 mg Documented by: Cholecalciferol (Cholecalciferol 400 Unit Tab) 400 unit PO DAILY [facility] Last Admin: 11/28/19 08:50 Dose: 400 unit Documented by: Dexamethasone (Dexamethasone 2 Mg Tab) 6 mg PO DAILY [facility] Last Admin: 11/28/19 08:51 Dose: 6 mg Documented by: Enoxaparin Sodium (Enoxaparin 40 Mg/0.4 Ml Syringe) 40 mg SQ DAILY [facility] Last Admin: 11/28/19 08:50 Dose: 40 mg Documented by: Famotidine (Famotidine 20 Mg Tab) 20 mg PO DAILY [facility] Last Admin: 11/28/19 08:50 Dose: 20 mg Documented by: Fluticasone Propionate (Fluticasone 50mcg/[place] Nasal 16gm) 2 spray EA NOSTRIL DAILY [facility] Last Admin: 11/28/19 08:51 Dose: Not Given Documented by: Guaifenesin/Dextromethorphan (Guaifenesin-Dm 100-10mg/5ml 10 Ml Cup) 10 ml PO Q6H PRN PRN Reason: Cough Last Admin: 11/25/19 14:30 Dose: 10 ml Documented by: Sodium Chloride (Saline 0.9%) 1,000 mls @ 20 mls/hr IV .Q24H [facility] Last Admin: 11/28/19 15:22 Dose: Not Given Documented by: Latanoprost (Latanoprost 0.005% Ophth Drops 2.5 Ml Btl) 1 drops BOTH EYES [facility] Last Admin: 11/27/19 20:39 Dose: 1 drops Documented by: Meclizine HCl (Meclizine 25 Mg Tab) 25 mg PO TID PRN PRN Reason: DIZZINESS/NAUSEA Melatonin (Melatonin 5 Mg Tablet) 5 mg PO [facility] Last Admin: 11/27/19 20:38 Dose: 5 mg Documented by: Methylprednisolone Sodium Succinate (Methylprednisolone Sod Succi 125 Mg/2 Ml Vial) 60 mg IV Q8HR [facility] Stop: 11/29/19 00:01 Last Admin: 11/28/19 17:01 Dose: 60 mg Documented by: Naloxone HCl (Naloxone 0.4 Mg/Ml 1 Ml Vial) 0.2 mg IV Q2M PRN PRN Reason: Opioid Reversal Ondansetron HCl (Ondansetron 4 Mg/2 Ml Vial) 4 mg IVP Q8HR PRN PRN Reason: Nausea And Vomiting Ondansetron HCl (Ondansetron Odt 8 Mg Tab.Rapdis) 8 mg PO Q8HR PRN PRN Reason: Nausea And Vomiting Pantoprazole Sodium (Pantoprazole 40 Mg Tablet) 40 mg PO DAILY [facility] Last Admin: 11/28/19 08:50 Dose: 40 mg Documented by: Promethazine HCl (Promethazine Hcl 6.25 Mg/5 Ml Cup) 6.25 mg PO Q6H [facility] Last Admin: 11/28/19 17:01 Dose: 6.25 mg Documented by: Zinc Sulfate (Zinc Sulfate 220 Mg Cap) 220 mg PO DAILY MAX Last Admin: 11/28/19 08:51 Dose: 220 mg Documented by: Physical examination: VITAL SIGNS: 98.1, 83, 16, 104/69, 94% on room air GENERAL: sitting up, less tired today EYES: Pupils equal. Conjunctiva normal. HEENT: External appearance of nose and ears normal, oral cavity grossly normal. NECK: JVD not raised; masses not palpable. HEART: First and second heart sounds are normal; no edema. LUNGS: Respiratory rate increased, decreased breath sound . ABDOMEN: Soft, nontender, liver spleen not palpable, no masses palpable. PSYCH: Alert and oriented x3; mood and affect anxious. INVESTIGATIONS, reviewed in the clinical context: potassium 3.9, CRP 1.3 Previous testing White count 14.2 neutrophils to 0.7 lymphocytes 0.6 d-dimer 0.8 date potassium 3.5 creatinine 0.65 CRP 89.8 LDH 808 EKG tracing personally reviewed by me-no sinus rhythm nonspecific T-wave changes Chest x-ray film personally reviewed by me-bilateral scattered infiltrates Assessment: -COVID 19 pneumonia symptoms present for 2 weeks. Patient is septic from the same -continues to improve slowly. CRP coming down. Pro-calcitonin was normal 4 days ago. -Relative hypoxia from COVID 19 pneumonia. On presentation, pulse ox normal -Dehydration from decreased oral intake with elevated BUN -Hypoalbuminemia, acute phase reactant -Obesity BMI 36.4 Plan: Continue vitamin C, Zithromax, vitamin D3, dexamethasone, Lovenox, Pepcid, zinc. IV Remdesivir. Solu-Medrol 60 mg every 8 started by pulmonary..therefore DC dexamethasone. patient looking better today.
--- NOTE | 2019-11-28 23:30 | PN ---
PROGRESS NOTE DATE OF SERVICE: 11/28/2019 REASON FOR FOLLOWUP: Acute COVID-19 pneumonia. INTERVAL HISTORY: The patient is currently afebrile. The patient is breathing more comfortably. The patient's cough has decreased in intensity. It remains dry in nature. No chest pain. No nausea, no vomiting. No abdominal pain or diarrhea. PHYSICAL EXAMINATION: Blood pressure 101/63 with a pulse of 82, temperature 98.3. She is 96% on room air. General description is an elderly female lying in bed in no distress. RESPIRATORY SYSTEM: Unlabored breathing with decreased intensity of breath sounds. No wheeze. HEART: S1, S2. Regular rate and rhythm. ABDOMEN: Soft. No tenderness. LABS: BUN of 22, creatinine 0.6. CRP is down to 1.3. DIAGNOSTIC IMPRESSION AND PLAN: Patient with acute COVID-19 pneumonia in this patient who has shown overall clinical response to current of Lovenox, dexamethasone Solu-Medrol and remdesivir, and the patient has completed her 5-day course. Monitor the patient closely. Continue with supportive care. MMODL / IJN: [id number] /
[2019-11-29] MEDS: PROMETHAZINE HCL 6.25 MG/5 ML CUP PO SCH ×3 (06:22→17:15)
[2019-11-29 08:20] VITALS: RESP 17
[2019-11-29] MEDS: PANTOPRAZOLE 40 MG TABLET PO SCH (08:45)
[2019-11-29] MEDS: AZITHROMYCIN 250 MG TAB PO SCH (08:45)
[2019-11-29] MEDS: CHOLECALCIFEROL 400 UNIT TAB PO SCH (08:45)
[2019-11-29] MEDS: ZINC SULFATE 220 MG CAP PO SCH (08:45)
[2019-11-29] MEDS: ASCORBIC ACID 500 MG TAB PO SCH (08:45)
[2019-11-29] MEDS: FAMOTIDINE 20 MG TAB PO SCH (08:45)
[2019-11-29] MEDS: FLUTICASONE 50MCG/SPRAY NASAL 16GM EA NOSTRIL SCH (08:46)
[2019-11-29] MEDS: ENOXAPARIN 40 MG/0.4 ML SYRINGE SQ SCH (08:46)
[2019-11-29] MEDS: ALBUTEROL HFA INHALER INHALATION SCH ×3 (09:00→16:28)
[2019-11-29 10:24] LABS: African American GFR (CKD) 86.6 (60.0-200.0); Albumin 3.6 g/dL (3.80-4.90); Albumin/Globulin Ratio 1.8 (1.60-3.17); Anion Gap 11.7 mmol/L (4.00-12.00); BUN/Creat Ratio 36.25 Ratio (12.00-20.00); C Reactive Protein 0.9 mg/dL (0.0-0.8); Carbon Dioxide 23.3 mmol/L (21.6-31.8); Non-African American GFR(CKD) 74.7 (60.0-200.0); Potassium 4.7 mmol/L (3.5-5.5); Total Bilirubin 0.3 mg/dL (0.3-1.2); Total Protein 5.6 g/dL (6.2-8.2)
[2019-11-29 11:12] VITALS: BMI 36.3
[2019-11-29] MEDS: methylPREDNISolone SOD SUCCI 40 MG/ML 1 ML VIAL IV SCH ×2 (12:11→16:40)
--- NOTE | 2019-11-29 13:24 | P.PN ---
Subjective Progress Note Date: 11/29/19 Principal diagnosis: CoVID 19 pneumonitis On November patient seen in follow-up on the general medical surgical floor, patient was admitted to the hospital on 11/23/2019 with complaints of shortness of breath, cough and fever, her symptoms started about a week ago. Patient was tested for COVID 19 and was found to be positive. In the emergency department she was also complaining of chills, cough, headache and some diffuse muscle aches. The chest x-ray showed a patchy bilateral pneumonitis. Patient was started on azithromycin, as she was started on Remdesivir, and today she is receiving her second dose. She is on prophylactic doses of Lovenox 40 mg daily, oral Pepcid, and zinc supplement. Today she still complaining of cough, but she has been afebrile in the last 24 hours, remains on 2 L of oxygen the pulse ox of 94%, CBC has been reviewed, lymphocytic, 0.8, the rest of the CBC is negative, d-dimer is 0.60, LDH is trending down down to 278, CRP is 11.8, procalcitonin is 0.08. On 11/26/2019 patient seen in follow-up on medical surgical floor, she remains in the contact precautions. Her main complaint is persistent cough, and diarrhea, she is currently on 2 L of oxygen with pulse ox of 93-94%, hemodynamically patient is stable, she has been afebrile, breathing seems to be comfortable otherwise. She continues on combination of azithromycin, oral Decadron, Pepcid, zinc supplement, Lovenox, and today will be her third dose of Remdesivir. No new labs today. On 11/27/2019 patient seen in follow-up on the [facility] medical surgical floor, she is awake and alert, she still is complaining of coughing spells, mild dyspnea, no acute distress. She is on 2 L of oxygen a pulse ox of 94-95%, hemodynamically stable, afebrile. He continues on azithromycin, oral Decadron, Pepcid, prophylactic doses of Lovenox, and today will receive her third dose of Remdesivir. She's had no fever or chills, no headaches, no nausea or vomiting, On 11/28/2019 patient is seen in follow-up on medical surgical floor, her cough is still quite persistent, but no worsening dyspnea, her vital segment stable overnight, she's had no fever or chills, she is on 2 L of oxygen per pulse ox 96%, hemodynamically stable, no chest pain, she remains on azithromycin, oral Decadron, Pepcid, prophylactic doses of Lovenox, and she will receive her fourth dose of Remdesivir today, she has had no fever, no chills no headaches no nausea or vomiting. The patient is seen today 11/29/2019 in follow-up on the regular medical floor. She is awake and alert in no acute distress. Her cough has subsided. This is day 5 of Remdesivir. He is maintaining O2 saturations in the 90s on room air. She's been afebrile. Hemodynamically stable. She remains on steroids, vitamin C, vitamin D, zinc, Pepcid, Lovenox. Antibiotics in the form of azithromycin. Sodium 139. Potassium 4.7. Creatinine 0.8. Glucose 229. LDH 417. C-reactive protein 0.9. Objective - Vital Signs Vital signs: Vital Signs Temp 98.5 F 11/29/19 07:26 Pulse 76 11/29/19 07:26 Resp 17 11/29/19 07:26 BP 133/75 11/29/19 07:26 Pulse Ox 93 L 11/29/19 07:26 Intake & Output 11/28/19 11/29/19 11/29/19 18:59 06:59 18:59 Intake Total 296 Balance 296 Weight 81.647 kg Intake: Oral 296 Other: Voiding Method Toilet # Voids 4 2 # Bowel Movements 2 - Exam GENERAL EXAM: Alert, very pleasant, 69-year-old white female, on 2 L nasal cannula, O2 saturation 93%, comfortable in no apparent distress. HEAD: Normocephalic/atraumatic. EYES: Normal reaction of pupils, equal size. Conjunctiva pink, sclera white. NOSE: Clear with pink turbinates. THROAT: No erythema or exudates. NECK: No masses, no JVD, no thyroid enlargement, no adenopathy. CHEST: No chest wall deformity. Symmetrical expansion. LUNGS: Equal air entry with no crackles, wheeze, rhonchi or dullness. CVS: Regular rate and rhythm, normal S1 and S2, no gallops, no murmurs, no rubs ABDOMEN: Soft, nontender. No hepatosplenomegaly, normal bowel sounds, no guarding or rigidity. EXTREMITIES: No clubbing, no edema, no cyanosis, 2+ pulses and upper and lower extremities. MUSCULOSKELETAL: Muscle strength and tone normal. SPINE: No scoliosis or deformity SKIN: No rashes CENTRAL NERVOUS SYSTEM: Alert and oriented -3. No focal deficits, tone is normal in all 4 extremities. PSYCHIATRIC: Alert and oriented -3. Appropriate affect. Intact judgment and insight. - Labs CBC & Chem 7: 11/25/19 05:25 11/29/19 05:17 Labs: Abnormal Lab Results - Last 24 Hours (Table) 11/29/19 Range/Units 05:17 BUN 29.0 H (9.0-27.0) mg/dL BUN/Creatinine Ratio 36.25 H (12.00-20.00) Ratio Glucose 229 H (70-110) mg/dL ALT 66 H (8-44) U/L Lactate Dehydrogenase 417 H (120-246) U/L C-Reactive Protein 0.9 H (0.0-0.8) mg/dL Total Protein 5.6 L (6.2-8.2) g/dL Albumin 3.60 L (3.80-4.90) g/dL Microbiology - Last 24 Hours (Table) 11/23/19 14:01 Blood Culture - Preliminary Blood No Growth after 120 hours Assessment and Plan Assessment: #1. Acute hypoxic respiratory failure related to acute COVID 19 pneumonitis #2. Fever, cough, shortness of breath, headache, muscle aches joint aches, fatigue related to the above #3. Elevated inflammatory markers related to acute quit 19 pneumonitis #4. Lifetime nonsmoker Plan: The patient was seen and evaluated by Dr. Jean-Claude Mcmanus with IV Solu-Medrol for now Completed Remdesivir today Stable on room air Probable discharge in the a.m. We'll continue to follow I, the cosigning physician, performed a history & physical examination of the patient. Lungs sounds are clear. Maintaining good O2 saturations in the 90s on room air. I discussed the assessment and plan of care with my nurse practitioner, Sindhu Pacheco. I attest to the above note as dictated by her.
[2019-11-29 15:12] VITALS: BP 117/72; PULSE 92; TEMP 98.4
--- NOTE | 2019-11-29 16:46 | PN ---
PROGRESS NOTE DATE OF SERVICE: 11/29/2019 REASON FOR FOLLOWUP: Acute COVID-19 pneumonia. INTERVAL HISTORY: The patient is currently afebrile. The patient is breathing comfortably. He did have some dry cough. Not bringing up any sputum. No nausea, no vomiting. No abdominal pain, no diarrhea. PHYSICAL EXAM: Blood pressure 117/72 with a pulse of 90, temperature 98.4. She is 94% on room air. General description is an elderly female, lying in bed in no distress. RESPIRATORY SYSTEM: Unlabored breathing, decreased intense breath sounds at the base. No wheeze. HEART: S1, S2. Regular rate and rhythm. ABDOMEN: Soft, no tenderness LABS: BUN of 29, creatinine 0.8. CRP 0.9. DIAGNOSTIC IMPRESSION AND PLAN: Patient with acute COVID-19 pneumonia for the patient completed a 5-day course of clindamycin, will discharge on different course of steroids. Advise cough drops and close outpatient observation. MMODL / IJN: [id number] /
--- NOTE | 2019-11-29 22:24 | P.DS ---
Providers Date of admission: 11/23/19 15:39 Expected date of discharge: 11/29/19 Attending physician: Giacomo Galeas Consults: 11/23/19 15:27 Consult Physician Routine Consulting Provider: Jerson Starks Consult Reason/Comments: covid-19 Do you want consulting provider notified?: Already Contacted 11/23/19 15:28 Consult Physician Routine Consulting Provider: Greta Richards Consult Reason/Comments: covid 19 Do you want consulting provider notified?: Yes Primary care physician: Joseph Mcgill [facility] Course: Chief Complaint: Short of breath cough History of presenting complaint: This is a pleasant 69-year-old patient of Dr. Ramiro Mcgill. Patient on 12 of November started getting this very symptoms. That included some shortness of breath cough fever tired started having some loose stools. Decreased appetite tired rundown. Also some headache. Symptoms progressively started to get worse. Patient denies any respiratory prior history. No smoking. Patient is employed. Patient came down positive for COVID 19. Dr. Starks was consulted from the ER. Admitted with-COVID 19 pneumonia. started on Lovenox and steroids. Remdisivir. Patient gradually improved. CRP came down. today-some cough is still present. Not hypoxic. Eating better. Ambulating. Discussed with the patient. Discussed with Dr. Bermeo from pulmonary and Dr. Mckeon from ID. DC. Advised about quarantine Discussion and discharge planning more than 35 minutes Beeswax Bleacher: Dr. Bermeo from pulmonary Dr. Richards from ID Physical examination: VITAL SIGNS: 98.4, 92, 17, 170-72, 94% on room air GENERAL: sitting up, more comfortable Rest of exam from other people EYES: Pupils equal. Conjunctiva normal. NECK: JVD not raised; masses not palpable. HEART: First and second heart sounds are normal; no edema. LUNGS: Respiratory rate increased, decreased breath sound . ABDOMEN: Soft, nontender, liver spleen not palpable, no masses palpable. PSYCH: Alert and oriented x3; mood and affect anxious. INVESTIGATIONS, reviewed in the clinical context: CRP 0.9 Previous testing White count 14.2 neutrophils to 0.7 lymphocytes 0.6 d-dimer 0.8 date potassium 3.5 creatinine 0.65 CRP 89.8 LDH 808 EKG tracing personally reviewed by me-no sinus rhythm nonspecific T-wave changes Chest x-ray film personally reviewed by me-bilateral scattered infiltrates Assessment: -COVID 19 pneumonia symptoms present for 2 weeks. Causing sepsis-UA. -Relative hypoxia from COVID 19 pneumonia. -Dehydration from decreased oral intake with elevated BUN -Hypoalbuminemia, acute phase reactant -Obesity BMI 36.4 Disposition: Home Patient Condition at Discharge: Stable Plan - Discharge Summary Discharge Rx Participant: Yes New Discharge Prescriptions: New Zinc Sulfate [Orazinc] 220 mg PO DAILY #20 cap predniSONE 10 mg PO DAILY #30 tab Ascorbic Acid [Vitamin C] 1,000 mg PO DAILY #20 tab Cholecalciferol [Vitamin D3] 400 unit PO DAILY #30 tab Continue Ondansetron Odt [Zofran ODT] 8 mg PO Q8HR PRN PRN Reason: Nausea And Vomiting Omeprazole [PriLOSEC] 40 mg PO DAILY Latanoprost/Pf [Latanoprost 0.005% Eye Drop] 1 drop BOTH EYES HS Fluticasone Nasal [place] [Flonase Nasal [place]] 2 spr EA NOSTRIL DAILY Ergocalciferol (Vitamin D2) [Drisdol] 50,000 unit PO Q7D Albuterol Sulfate [Ventolin HFA] 2 puff INHALATION RT-Q4H PRN PRN Reason: Shortness Of Breath Alendronate Sodium [Fosamax] 70 mg PO Q7D Discontinued predniSONE See Taper PO DAILY Cefdinir 300 mg PO BID Meclizine HCl 25 mg PO TID PRN PRN Reason: DIZZINESS/NAUSEA Discharge Medication List Albuterol Sulfate [Ventolin HFA] 2 puff INHALATION RT-Q4H PRN 11/23/19 [History] Alendronate Sodium [Fosamax] 70 mg PO Q7D 11/23/19 [History] Ergocalciferol (Vitamin D2) [Drisdol] 50,000 unit PO Q7D 11/23/19 [History] Fluticasone Nasal [place] [Flonase Nasal [place]] 2 spr EA NOSTRIL DAILY 11/23/19 [History] Latanoprost/Pf [Latanoprost 0.005% Eye Drop] 1 drop BOTH EYES HS 11/23/19 [History] Omeprazole [PriLOSEC] 40 mg PO DAILY 11/23/19 [History] Ondansetron Odt [Zofran ODT] 8 mg PO Q8HR PRN 11/23/19 [History] Ascorbic Acid [Vitamin C] 1,000 mg PO DAILY #20 tab 11/29/19 [Rx] Cholecalciferol [Vitamin D3] 400 unit PO DAILY #30 tab 11/29/19 [Rx] Zinc Sulfate [Orazinc] 220 mg PO DAILY #20 cap 11/29/19 [Rx] predniSONE 10 mg PO DAILY #30 tab 11/29/19 [Rx] Follow up Appointment(s)/Referral(s): Joseph Mcgill MD [Primary Care Provider] - 12/06/19 9:00 am (This is a telehealth appointment please call the office ahead if you have any questions) [facility], [NON-STAFF] - As Needed Minerva Bermeo MD [STAFF PHYSICIAN] - 01/15/20 9:45 am Discharge Disposition: HOME SELF-CARE
== END 2019-11-29 17:28 | disposition home health service (06) | DRG 871 ==
LOC: EC 12:57 → 4SSUR 15:39
PROVIDERS: ADMIT Hospitalist; ATTEND Hospitalist
DX: A41.89 Other specified sepsis (principal); U07.1 COVID-19; J96.01 Acute respiratory failure with hypoxia; J12.89 Other viral pneumonia; J44.0 Chronic obstructive pulmonary disease with (acute) lower respiratory infection; E88.09 Other disorders of plasma-protein metabolism, not elsewhere classified; E66.9 Obesity, unspecified; E86.0 Dehydration; D72.810 Lymphocytopenia; R94.4 Abnormal results of kidney function studies; R19.7 Diarrhea, unspecified; Z71.3 Dietary counseling and surveillance; Z68.36 Body mass index [BMI] 36.0-36.9, adult; Z79.899 Other long term (current) drug therapy; Z79.83 Long term (current) use of bisphosphonates; Z87.891 Personal history of nicotine dependence; Z98.890 Other specified postprocedural states; Z98.891 History of uterine scar from previous surgery
CPT/HCPCS: 36415; 71045; 80048; 80053; 82728; 83605; 83615; 83735; 84145; 85025; 85379; 85610; 85730; 86140; 87040; 93005; 93970; 94640; 94760; 96365; 96372; 99285